=== PATIENT | female | born 1955 | race Caucasian/White ===

== ENCOUNTER → 2016-11-05 | Outpatient (CLI) | payer MEDICARE, OTHER ==
--- NOTE | 2016-11-05 13:37 | MR ---
EXAMINATION TYPE: MR shoulder RT wo con DATE OF EXAM: 11/05/2016 1:16 PM COMPARISON: NONE HISTORY: Right shoulder pain TECHNIQUE: Multiplanar, multisequence imaging of the right shoulder is performed without contrast. FINDINGS: Rotator Cuff: There is no evidence of through thickness tear of the rotator cuff. There is bursal scu ffing along the musculotendinous junction of the supraspinatus tendon. Acromioclavicular Joint: Hypertrophic change of the AC joint is seen to a mild degree. Prominence of the acromium does result in some mass effect and impingement upon the supraspinatus muscle and tendon . Glenohumeral Joint: Joint space appears narrowed. Cystic changes involving the glenoid noted with mar ked thinning of the glenoid cartilage compatible with chondromalacia. Small joint effusion seen with intermediate areas of signal within the axillary recess likely represent of loose bodies. Favor carti laginous etiology over avulsed labrum. Mild thickening of the inferior glenohumeral ligament likely c hronic with no evidence of tear. Labrum: Findings are suggestive of a SLAP tear. There is also blunting and abnormal morphology of the inferior labrum suspicious for degenerative tear. Biceps Tendon: The long head of biceps is in normal location within bicipital groove. There is increa sed signal involving the intracapsular portion of the tendon compatible with tendinosis. Bone marrow signal: Cystic change involving the head of the humerus and also noted within the glenoid appears post arthritic or degenerative. IMPRESSION: 1. Osteoarthritis with marked cartilaginous loss of the glenoid and suspected loose bodies within a s mall glenohumeral joint effusion. 2. Extensive labral tear likely degenerative. 3. Bicipital tendinosis intracapsular portion. 4. Bursal scuffing along the musculotendinous junction of the supraspinatus tendon likely secondary t o impingement from AC joint.
== END | disposition home or self-care (01) ==
LOC: RADMRIMAIN 12:39
PROVIDERS: ATTEND Orthopaedic Surgery
DX: M19.011 Primary osteoarthritis, right shoulder (principal); S43.431A Superior glenoid labrum lesion of right shoulder, initial encounter; M67.813 Other specified disorders of tendon, right shoulder

== ENCOUNTER → 2016-12-19 | Outpatient (CLI) | payer MEDICARE, OTHER ==
[2016-12-19 16:06] LABS: Anisocytosis Slight; Basophils % (A) 1 %; CH 22.6; CHCM 30.4; Eosinophils # (A) 0.3 k/uL (0-0.7); Eosinophils % (A) 5 %; HCT 39.9 % (34.0-46.0); HDW 2.82; HGB 12.7 gm/dL (11.4-16.0); Hypochromasia Marked; Luc # (Auto) 0.18; Luc % (Auto) 3; Lymphocytes # (A) 1.3 k/uL (1.0-4.8); Lymphocytes % (A) 20 %; MCH 23.9 pg (25.0-35.0); MCV 74.8 fL (80.0-100.0); Mean Platelet Volume 7.7; Microcytosis Slight; Monocytes # (A) 0.5 k/uL (0-1.0); Monocytes % (A) 7 %; Neutrophils # (A) 4.4 k/uL (1.3-7.7); Neutrophils % (A) 65 %; RBC 5.33 m/uL (3.80-5.40); RDW 16.3 % (11.5-15.5); WBC 6.7 k/uL (3.8-10.6); WBC (Perox) 7.17
[2016-12-19 16:13] LABS: Potassium 4.1 mmol/L (3.5-5.1)
== END | disposition home or self-care (01) ==
LOC: LABPAT 15:45
PROVIDERS: ATTEND Orthopaedic Surgery
DX: Z01.812 Encounter for preprocedural laboratory examination (principal)
CPT/HCPCS: 36415; 80051; 85025

== ENCOUNTER 2017-01-09 08:32 | Day surgery (SDC) | payer MEDICARE, OTHER ==
[2017-01-07 15:31] VITALS: BMI 44.6
--- NOTE | 2017-01-08 18:34 | HP ---
DATE OF ADMISSION: 01/09/2017 Irais Sheppard is a 61-year-old patient seen with progressive right shoulder pain. After having treatment options discussed, she elected to proceed with right shoulder arthroscopy. Consent was obtained. Medical clearance was provided by Dr. Jennings's office. PAST MEDICAL HISTORY: 1. Hypothyroidism. 2. Hypertension. 3. Hyperlipidemia. 4. Akj-dxvebmp-uvcmnnebi diabetes. 5. Asthma. 6. Osteoarthritis. 7. COPD. 8. Migraine headaches. PAST SURGICAL HISTORY: 1. Carpal tunnel release. 2. Cholecystectomy. 3. Hysterectomy. 4. Tonsillectomy. 5. Total knee arthroplasty. DAILY MEDICATIONS: 1. Albuterol. 2. Thyroid. 3. Ativan. 4. Cymbalta. 5. Imitrex. 6. Lipitor. 7. Metformin. 8. Seroquel. 9. Spiriva. 10. Synthroid. ALLERGIES: 1. CODEINE. 2. CELEXA. 3. VICODIN. 4. MEDICAL TAPE. SOCIAL HISTORY: Patient denies current tobacco use. PHYSICAL EVALUATION OF RIGHT SHOULDER: Flexion 110 degrees, abduction 90 degrees. External rotation is 30 degrees with pain and weakness. Tenderness along the anterolateral acromion and rotator cuff insertion site. Impingement positive at 90 degrees. Distal neurovascular exam intact. Radiographs of the right shoulder revealed type II anterior acromion, acromioclavicular joint osteoarthritis. MRI right shoulder revealed glenohumeral osteoarthritis, labral tear, biceps tendinitis and impingement. IMPRESSION: Right shoulder impingement with labral tear and biceps tendinitis. PLAN: Right shoulder arthroscopy with subacromial decompression, probable biceps tendon release and debridement.
[~2017-01-09 08:32] MED LIST: DEXAMETHASONE SOD PHOSPHATE 10 MG/ML 1 ML VIAL IV ONE; FAMOTIDINE 20 MG/2 ML VIAL IV PRN; HYDROmorphone 1 MG/ML 1 ML SYRINGE IVP PRN; LACTATED RINGERS 1,000 ML IV SCH; LIDOCAINE 1% 20 ML VIAL (10MG/ML) FOR IV START INTRADERMA PRN; MIDAZOLAM 2 MG/2 ML VIAL IV PRN; ONDANSETRON 4 MG/2 ML VIAL IVP ONE; ceFAZolin 2 GM in SODIUM CHLORIDE 0.9% 100 ML IVPB ONE
[2017-01-09 09:19] LABS: Glucose,Whole Blood 95 mg/dL (75-99)
[2017-01-09] MEDS ORDERED: LIDOCAINE 1% 20 ML VIAL (10MG/ML) FOR IV START INTRADERMA ONE (09:31)
[2017-01-09] MEDS ORDERED: LIDOCAINE 2%-EPI 1:100,000 20 ML VIAL ONE (10:25)
[2017-01-09] MEDS ORDERED: ROPIVACAINE 5 MG/ML 30 ML VIAL ONE (10:25)
[2017-01-09] MEDS ORDERED: NEOSTIGMINE 1 MG/ML 10 ML VIAL ONE (10:25)
[2017-01-09] MEDS ORDERED: SUCCINYLCHOLINE CHLORIDE 100 MG/5 ML SYR IV ONE (10:25)
[2017-01-09] MEDS ORDERED: PROPOFOL 10 MG/ML 20 ML VIAL IV ONE (10:25)
[2017-01-09] MEDS ORDERED: LIDOCAINE 1% INJ 10MG/ML (20 ML MDV) ONE (10:25)
[2017-01-09] MEDS ORDERED: GLYCOPYRROLATE 0.2 MG/ML 2 ML VIAL ONE (10:25)
[2017-01-09] MEDS ORDERED: ROCURONIUM BROMIDE 10 MG/ML 10 ML VIAL IV ONE (10:25)
[2017-01-09] MEDS ORDERED: fentaNYL (PF) 50 MCG/ML 2 ML AMP ONE (10:25)
[2017-01-09] MEDS ORDERED: MIDAZOLAM 2 MG/2 ML VIAL ONE (10:25)
[2017-01-09] MEDS ORDERED: LACTATED RINGERS 1,000 ML IV ONE (11:34)
[2017-01-09] MEDS ORDERED: BUPIVACAINE (PF) 0.25% 30 ML VIAL SQ ONE (11:34)
--- NOTE | 2017-01-09 12:08 | P.OP ---
Date of Procedure: 01/09/17 Preoperative Diagnosis: Right shoulder impingement Postoperative Diagnosis: 1. Right shoulder impingement 2. Right shoulder acromioclavicular joint osteoarthritis 3. Right shoulder grade 2/3 chondromalacia humeral head with osteochondral tears 4. Right shoulder grade 3/4 chondromalacia glenoid with osteochondral tears 5. Right shoulder anterior/superior labral tears 6. Right shoulder partial long head biceps tendon tear 7. Right shoulder superficial rotator cuff tear 8. Right shoulder loose bodies-2 Procedure(s) Performed: 1. Right shoulder arthroscopic subacromial decompression 2. Right shoulder arthroscopic Rachel procedure 3. Right shoulder arthroscopic chondroplasty humeral head 4. Shoulder arthroscopic chondroplasty glenoid fossa 5. Right shoulder arthroscopic debridement labral tears 6. Right shoulder arthroscopic biceps tenotomy 7. Right shoulder scopic debridement superficial rotator cuff tear 8. Right shoulder arthroscopic removal 2 loose bodies Implants: None Anesthesia: RANDI, local Surgeon: Jairon Herring Estimated Blood Loss (ml): 10 Pathology: none sent Condition: stable Disposition: PACU Indications for Procedure: 61-year-old patient seen with progressive right shoulder pain. After treatment options were discussed, she elected to proceed with arthroscopy. Operative Findings: See description of procedure Description of Procedure: Patient underwent a shoulder block by department of anesthesia. The patient was then taken to the operative suite. The patient underwent a general anesthetic by the department of anesthesia. The patient was placed into a lateral position and secured. There was appropriate padding of the bony prominence. Right shoulder was then prepped and draped in normal sterile orthopedic fashion. We placed the extremity in 10 pounds of longitudinal traction. A posterior incision was now made for a posterior working portal site. The trocar and cannula were inserted into the glenohumeral joint. Arthroscopy was initiated. Spinal needle was now inserted anteriorly, to ascertain the anterior working portal site. An incision was now made in that area, a trocar was inserted followed by a probe. I immediately encountered a large loose body. I removed the probe. I utilized a loose body forceps but no loose body was too big to try to remove. I then broke the loose body up into several fragments and remove them one by one. The probe was reintroduced. I discovered another loose body. I reintroduced loose body forceps and was able to remove it without difficulty. There was a osteochondral tearing defect along the anterior glenoid at about the 3 o'clock position. There was also some superficial tearing of the labrum in that area as well as superficial tearing of the superior labrum. There were grade 3 and 4 chondromalacia changes along the anterior portion of the glenoid. There were grade 2 and 3 chondral malacia changes of the humeral head with osteochondral tears present. The inferior posterior labrum were intact. There was some hyperemia noted of the long head biceps tendon was some partial tearing. I performed a chondroplasty of the humeral head getting down to stable osteochondral tissue. I performed a chondroplasty of the glenoid fossa getting down to stable osteochondral tissue. I debrided the labral tears down to stable tissue. I performed a arthroscopic biceps tenotomy. The residual labrum was probed and found to be stable. The residual osteochondral surfaces of both the humeral head and glenoid fossa were also stable. There were grade 3 chondromalacia changes of the humeral head and grade 3 and 4 chondromalacia changes of glenoid. Instruments at this point were removed from glenohumeral joint. Utilizing the posterior working portal site, the trocar and cannula were inserted into the subacromial space. Arthroscopy initiated. I made an incision 2 fingerbreadths lateral to the acromion. I introduced my trocar followed by my ArthroCare ablator. I now began ablating thick subacromial bursal tissue, which exposed the undersurface of the anterior acromion. This was diminished subacromial space. There was a very prominent anterior acromion. A motorized bur was introduced and a subacromial decompression was performed. I also excised some osteophytes off the inferior aspect of the distal clavicle. The AC joint was visualized and noted to be fairly arthritic. Our motorized bur was introduced in the anterior portal site and a Rachel procedure was performed without difficulty, decompressing the AC joint nicely. I turned my attention to the rotator cuff. There was some superficial tearing of the distal supraspinatus. I did not appreciate an obvious perforation or full-thickness tear. Motorize shaver was utilized to debride the tendon down to stable tissue. The residual rotator cuff tendon tissue was stable. I now injected 1 mL of Allogen intra-articular. Instruments now removed from the portal sites. All portal sites were approximated with nylon suture. Sterile dressings were applied followed by a shoulder immobilizer. The patient was awakened, transferred to a bed, and taken to recovery in stable condition.
[2017-01-09 12:26] VITALS: TEMP 96.9
[2017-01-09 12:32] LABS: Glucose,Whole Blood 120 mg/dL (75-99)
[2017-01-09 14:21] VITALS: BP 99/61; PULSE 93; RESP 20
== END 2017-01-09 15:01 | disposition home or self-care (01) ==
LOC: OR 08:32
PROVIDERS: ATTEND Orthopaedic Surgery
DX: M75.41 Impingement syndrome of right shoulder (principal); M19.011 Primary osteoarthritis, right shoulder; M94.211 Chondromalacia, right shoulder; M75.101 Unspecified rotator cuff tear or rupture of right shoulder, not specified as traumatic; M25.711 Osteophyte, right shoulder; M24.011 Loose body in right shoulder; E03.9 Hypothyroidism, unspecified; I10 Essential (primary) hypertension; E78.5 Hyperlipidemia, unspecified; K21.9 Gastro-esophageal reflux disease without esophagitis; E11.9 Type 2 diabetes mellitus without complications; Z79.84 Long term (current) use of oral hypoglycemic drugs; F32.9 Major depressive disorder, single episode, unspecified; F41.9 Anxiety disorder, unspecified; J44.9 Chronic obstructive pulmonary disease, unspecified; G43.909 Migraine, unspecified, not intractable, without status migrainosus; Z79.899 Other long term (current) drug therapy; Z88.5 Allergy status to narcotic agent; Z88.8 Allergy status to other drugs, medicaments and biological substances; Z91.09 Other allergy status, other than to drugs and biological substances
CPT/HCPCS: 64415; 29826; 29827; 29824; C1765; J2250; J1100; J2710; J0690; J2405; J2001; J3010; J2795; J0330; J2704

== ENCOUNTER → 2017-10-31 | Outpatient (CLI) | payer MEDICARE, OTHER | END | disposition home or self-care (01) | LOC: LABWHC1 15:30 → LABPAT 15:30 | PROVIDERS: ATTEND Orthopaedic Surgery | DX: Z01.812 Encounter for preprocedural laboratory examination (principal) | CPT/HCPCS: 87070 ==

== ENCOUNTER 2017-11-11 08:14 | Inpatient (IN) | payer MEDICARE, OTHER ==
[2017-10-31 15:39] VITALS: BMI 45.3
--- NOTE | 2017-11-10 14:21 | HP ---
HISTORY AND PHYSICAL Surgery is scheduled for 11/11/2017. Irais Sheppard is a 62-year-old patient seen with symptomatic right knee osteoarthritis. After treatment options were discussed, she elected to proceed with right total knee arthroplasty. Consent was obtained. Medical clearance was provided by Dr. Luisa Jennings. PAST MEDICAL HISTORY: Hypothyroidism, asthma, hyperlipidemia, hypertension, krx-iacfaju-abzycuuuy diabetes. PAST SURGICAL HISTORY: Carpal tunnel release, cholecystectomy, hysterectomy, tonsillectomy, knee arthroscopy, left total knee arthroplasty. DAILY MEDICATIONS: Albuterol, Aricept, Synthroid, Ventolin, Seroquel, Spiriva, metformin, Lipitor, Imitrex. ALLERGIES: CODEINE, CELEXA, VICODIN, TAPE. SOCIAL HISTORY: Patient denies current tobacco use. PHYSICAL EXAMINATION: Evaluation right knee: Range of motion is -2 to 115. Tenderness medial joint line. Positive medial Roger's, crepitus medial patellofemoral compartments. Pain with patellofemoral compression. Ligaments stable. Hip rotation without pain. Distal neurovascular exam intact right knee. RADIOGRAPHS: Right knee radiographs revealed severe medial moderate patellofemoral compartment osteoarthritis. IMPRESSION: Right knee osteoarthritis, hypertension, hyperlipidemia, hypothyroidism, non-insulin- dependent diabetes. PLAN: Right total knee arthroplasty. MMODL / IJN: [id number] /
[~2017-11-11 08:14] MED LIST changes: +ACETAMINOPHEN TAB 500 MG TAB PO ONE; -DEXAMETHASONE SOD PHOSPHATE 10 MG/ML 1 ML VIAL IV ONE; -FAMOTIDINE 20 MG/2 ML VIAL IV PRN; -HYDROmorphone 1 MG/ML 1 ML SYRINGE IVP PRN; +MELOXICAM 7.5 MG TAB PO ONE; -MIDAZOLAM 2 MG/2 ML VIAL IV PRN; +TRANEXAMIC ACID 1,000 MG in SODIUM CHLORIDE 0.9% 50 ML IVPB ONE; -ceFAZolin 2 GM in SODIUM CHLORIDE 0.9% 100 ML IVPB ONE; +fentaNYL (PF) 50 MCG/ML 2 ML AMP IV PRN
[2017-11-11] MEDS ORDERED: LIDOCAINE 1% 20 ML VIAL (10MG/ML) FOR IV START INTRADERMA ONE (09:16)
[2017-11-11 09:22] LABS: Glucose,Whole Blood 132 mg/dL (75-99)
[2017-11-11] MEDS ORDERED: ROPIVACAINE 246.25 MG, EPINEPHrine 0.5 MG, KETOROLAC 30 MG, cloNIDine HCL/PF 80 MCG, WA... MISCELLANE ONE ×5 (09:22)
[2017-11-11] MEDS ORDERED: MIDAZOLAM 2 MG/2 ML VIAL IV ONE (09:36)
[2017-11-11] MEDS ORDERED: ONDANSETRON 4 MG/2 ML VIAL IVP ONE (09:40)
[2017-11-11] MEDS ORDERED: ceFAZolin 3,000 MG in SODIUM CHLORIDE 0.9% IRRIGATIO 3,000 ML IRRIGATION ONE (10:00)
[2017-11-11] MEDS: ceFAZolin IN SWFI 2 GM/20 ML SYRINGE IVP ONE ×2 (10:00→10:31)
[2017-11-11] MEDS ORDERED: TRANEXAMIC ACID 1,000 MG/10 ML VIAL ONE (10:00)
[2017-11-11] MEDS ORDERED: MIDAZOLAM 2 MG/2 ML VIAL ONE (10:00)
[2017-11-11] MEDS ORDERED: PROPOFOL 10 MG/ML 20 ML VIAL IV ONE (10:00)
[2017-11-11] MEDS ORDERED: SODIUM CHLORIDE 0.9% 100 ML BAG ONE (10:00)
[2017-11-11] MEDS ORDERED: LACTATED RINGERS 1,000 ML IV ONE (10:55)
[2017-11-11] MEDS ORDERED: ROPIVACAINE 1,100 MG, SODIUM CHLORIDE 0.9% 330 ML MISCELLANE PRN ×2 (11:21)
[2017-11-11] MEDS ORDERED: DEXAMETHASONE SOD PHOSPHATE 10 MG/ML 1 ML VIAL IV ONE (11:31)
[2017-11-11] MEDS ORDERED: HYDROcodone/APAP 7.5-325MG 1 EACH TAB PO PRN (11:36)
[2017-11-11] MEDS ORDERED: ONDANSETRON 4 MG/2 ML VIAL IVP PRN (11:36)
[2017-11-11] MEDS ORDERED: MORPHINE SULFATE 4 MG/ML SYRINGE IVP PRN ×2 (11:36)
[2017-11-11] MEDS ORDERED: NALOXONE 0.4 MG/ML 1 ML VIAL IV PRN (11:36)
--- NOTE | 2017-11-11 11:36 | P.OP ---
Date of Procedure: 11/11/17 Preoperative Diagnosis: Right knee osteoarthritis Postoperative Diagnosis: Right knee osteoarthritis Procedure(s) Performed: Right total knee arthroplasty Implants: 1. Cam persona size 6 narrow right cruciate retaining cemented femur 2. Cam persona size D right cemented tibia 3. Cam persona 10 mm medial congruent polyethylene tibial insert 4. Cam persona 32 mm all polyethylene cemented patella Anesthesia: regional (Adductor canal block), local, spinal Surgeon: Jairon Herring Carpentry Professional #1: Chuck Joseph Estimated Blood Loss (ml): 40 Pathology: other (Bone) Condition: stable Disposition: PACU Indications for Procedure: 62-year-old patient seen was symptomatically right knee osteoarthritis. After treatment options were discussed, she elected to proceed with total knee arthroplasty. Operative Findings: see description of procedure Description of Procedure: Patient was taken to the operative suite after having and adductor canal catheter placed by the department of anesthesia. Patient underwent a spinal anesthetic by the department of anesthesia. Patient was given preoperative IV intake antibiotics and TXA. A well-padded tourniquet was placed about the right lower extremity. The lower extremity was then prepped and draped in the normal sterile orthopedic fashion. The extremity was elevated, a tourniquet was insufflated to 300. A standard anterior incision was made sharply through skin. Dissection was taken down through the subcutaneous soft tissues down to the extensor mechanism. A medial arthrotomy was performed, patella was everted and knee was flexed. There was advanced osteoarthritis noted. A proximal tibial cutting guide was positioned. Proximal tibial cut was made. A distal intramedullary femoral cutting guide was positioned, distal femoral cut made. We placed the appropriate sizing guide and selected the appropriate size. A distal 4-in-1 femoral cutting block was positioned, distal femoral cuts were made. We now placed a trial femoral component into position, along with an appropriate size tibial tray and insert. We now took the knee through range of motion and had full extension good flexion and good overall soft tissue balance noted. The patella was everted and a flush cut made with patellar quad tendon. We templated the patella, appropriate drill holes were made. An appropriate trial patella was positioned, knee was taken through full range of motion with the patella tracking very nicely. The trial patella was removed. Drill holes were made through the femoral component. All trial components were removed after marking off the appropriate rotation of the tibia. Retractors were now positioned along the proximal tibia. An appropriate keel punch was made with the appropriate size tibial guide. At this point appropriate size implants were chosen and opened. The joint was irrigated copiously with pulse lavage mechanical irrigation. The posterior capsule was infiltrated with local analgesic. We mixed antibiotic methylmethacrylate. Once the methyl methacrylate was ready, the tibial component was cemented into place removing any excess methylmethacrylate. The femoral component was cemented into place removing the removing any excess methylmethacrylate. We then inserted the appropriate size polyethylene tibial insert. We made sure that it was locked into position. We took the knee into full extension, and then back in a flexion making sure we had removed any excess methylmethacrylate. The patellar component was then cemented down and secured with clamp. Excess methylmethacrylate removed. We kept the knee in full extension, patellar clamp in position until methylmethacrylate had hardened. Once it had hardened the patellar clamp was removed. The knee was taken through full range of motion. The patella tracked nicely. There was good soft tissue balancing. The tourniquet was now released. Additional hemostasis was achieved via electrocautery. A second gram of TXA was given. The superficial soft tissues were infiltrated local analgesic. The wound was irrigated with pulse lavage mechanical irrigation. The extensor mechanism was repaired with Vicryl. We checked the repair with range of motion and it was stable. The subcutaneous soft tissues were repaired with Vicryl in layers. The skin was approximated with skin frederick. Sterile dressings were applied followed by loose web roll and Melvin bandage. The patient was transferred to a bed, and taken to recovery in stable and satisfactory condition. David LAZO assisted with the procedure.
--- NOTE | 2017-11-11 12:44 | XR ---
EXAMINATION TYPE: XR knee limited RT DATE OF EXAM: 11/11/2017 CLINICAL HISTORY: Right knee pain and arthritis status post total knee replacement. TECHNIQUE: Portable AP and crosstable lateral views of the right knee are obtained immediately posto peratively. COMPARISON: None FINDINGS: Metallic hardware from total right knee arthroplasty is seen and appears satisfactory in a lignment and position. There is evidence of recent surgery with diffuse subcutaneous gas, soft tissu e swelling and vertical skin frederick noted. IMPRESSION: METALLIC HARDWARE FROM TOTAL RIGHT KNEE ARTHROPLASTY IS SATISFACTORY IN ALIGNMENT.
[2017-11-11 13:03] LABS: Glucose,Whole Blood 172 mg/dL (75-99)
[2017-11-11] MEDS ORDERED: BISMUTH SUBSALICYLATE 4,192 MG/240 ML BOTTLE PO PRN (14:05)
[2017-11-11] MEDS ORDERED: NITROGLYCERIN SL TABS 0.4 MG TAB SUBLINGUAL PRN (14:05)
[2017-11-11] MEDS ORDERED: ALBUTEROL NEBULIZED 2.5 MG/3 ML INHALATION PRN (14:05)
[2017-11-11] MEDS ORDERED: QUEtiapine 25 MG TAB PO SCH (14:15)
[2017-11-11] MEDS: traMADol 50 MG TAB PO SCH ×2 (14:37→17:55)
[2017-11-11] MEDS: QUEtiapine 50 MG TAB PO SCH ×3 (14:42→22:55)
[2017-11-11] MEDS: GABAPENTIN 400 MG CAP PO SCH ×3 (14:42→20:36)
[2017-11-11] MEDS: LACTATED RINGERS 1,000 ML IV SCH (14:44)
[2017-11-11] MEDS: ADDERALL 30MG PO SCH (14:45)
--- NOTE | 2017-11-11 15:32 | P.CONS ---
History of Present Illness - Reason for Consult Consult date: 11/11/17 Medical management Requesting physician: Jairon Herring - Chief Complaint Status post right total knee arthroplasty - History of Present Illness This is a 62-year-old female, a patient of Dr. Jennings. She has a known past medical history of osteoarthritis, hypothyroidism, hyperlipidemia, diabetes mellitus, obstructive sleep apnea, dementia, ADHD, bipolar, schizophrenia, anxiety and depression. Patient is status post a total knee arthroplasty. Postop day #0. Estimated blood loss 40 amount. No complications reported. She is artery sitting up at bedside chair. Pain is tolerable. She is reporting some numbness in the right heel. We have been consulted for medical management. She denies any fever, chills, sweats, nausea or vomiting, bowel movement changes or urinary symptoms. Review of Systems Please refer to HPI otherwise unremarkable Past Medical History Past Medical History: Chest Pain / Angina, COPD, Diabetes Mellitus, GERD/Reflux , Hyperlipidemia, Memory Impairment, Osteoarthritis (OA), Sleep Apnea/CPAP/BIPAP , Thyroid Disorder Additional Past Medical History / Comment(s): Hx migraine headaches, colitis, 4 bulging discs in back, ruptured disks in lower back, use of CPAP, short term memory loss, emphysema, colitis. History of Any Multi-Drug Resistant Organisms: MRSA Year Discovered:: 05/09/10 MDRO Source:: rt knee Past Surgical History: Appendectomy, Cholecystectomy, Hysterectomy, Joint Replacement, Orthopedic Surgery, Tonsillectomy Additional Past Surgical History / Comment(s): Bilateral carpal tunnel, TOTAL LEFT KNEE. Past Anesthesia/Blood Transfusion Reactions: No Reported Reaction Past Psychological History: Anxiety, Bipolar, Depression, Panic Disorder, Schizoaffective Disorder Additional Psychological History / Comment(s): psychosis, borderline personality disorder, Smoking Status: Former smoker Past Alcohol Use History: None Reported Additional Past Alcohol Use History / Comment(s): Quit smoking in 1994, smoked for 30 yrs-1-2 PPD. Past Drug Use History: None Reported - Past Family History Mother Family Medical History: No Reported History Medications and Allergies Home Medications Medication Instructions Recorded Confirmed Type Albuterol Inhaler [Ventolin Hfa 2 puff INHALATION RT-Q6H PRN 10/17/15 11/11/17 History Inhaler] DULoxetine HCL [Cymbalta] 120 mg PO QAM 10/17/15 11/11/17 History Donepezil HCl [Aricept] 10 mg PO HS 10/17/15 11/11/17 History Gabapentin [Neurontin] 400 mg PO QID 10/17/15 11/11/17 History Ibandronate Sodium [Boniva] 150 mg PO Q30D 10/17/15 11/11/17 History Loratadine [Claritin] 10 mg PO HS 10/17/15 11/11/17 History Nitroglycerin Sl Tabs [Nitrostat] 0.4 mg SUBLINGUAL Q5M PRN 10/17/15 11/11/17 History Pantoprazole Sodium 40 mg PO QAM 10/17/15 11/11/17 History QUEtiapine XR [SEROquel XR] 150 mg PO W/LUNCH 10/17/15 11/11/17 History Sucralfate [Carafate] 1 gm PO BID 10/17/15 11/11/17 History metFORMIN HCL [Glucophage] 850 mg PO TID 10/17/15 11/11/17 History Albuterol Nebulized [Ventolin 2.5 mg INHALATION RT-TID PRN 10/31/15 11/11/17 History Nebulized] Atorvastatin [Lipitor] 40 mg PO HS 01/07/17 11/11/17 History Ergocalciferol (Vitamin D2) 50,000 unit PO BLEDSOE 01/07/17 11/11/17 History [Vitamin D2] Levothyroxine Sodium [Synthroid] 75 mcg PO HS 01/07/17 11/11/17 History QUEtiapine XR [SEROquel XR] 150 mg PO HS 01/07/17 11/11/17 History QUEtiapine XR [SEROquel XR] 150 mg PO W/SUPPER 01/07/17 11/11/17 History Bismuth Subsalicylate 262 mg PO BID PRN 10/31/17 11/11/17 History [Pepto-Bismol] Dextroamphetamine/Amphetamine 30 mg PO DAILY 10/31/17 11/11/17 History [Adderall] Ferrous Sulfate [Iron (65 MG 325 mg PO DAILY 10/31/17 11/11/17 History Elemental)] HYDROcodone/APAP 5-325MG [[place] 1 tab PO Q6H PRN 10/31/17 11/11/17 History 5-325] Ibuprofen 800 mg PO TID PRN 10/31/17 11/11/17 History SUMAtriptan SUCCINATE [Imitrex] 100 mg PO TID PRN 10/31/17 11/11/17 History cloNIDine HCL [Catapres] 0.2 mg PO HS 10/31/17 11/11/17 History lamoTRIgine [LaMICtal] 25 mg PO HS 10/31/17 11/11/17 History Allergies Allergy/AdvReac Type Severity Reaction Status Date / Time adhesive tape Allergy Blisters Verified 11/11/17 13:09 citalopram hydrobromide Allergy Itching,jenna Verified 11/11/17 13:09 [From Celexa] h codeine Allergy Nausea & Verified 11/11/17 13:09 Vomiting hydrocodone bitartrate Allergy Nausea & Verified 11/11/17 13:09 [From Vicodin] Vomiting pentazocine HCl Allergy "loss of Verified 11/11/17 13:09 [From [place]] time/memory" surgical glue AdvReac Unknown Uncoded 11/11/17 08:50 Physical Exam Vitals: Vital Signs Temp Pulse Resp BP Pulse Ox 11/11/17 15:15 80 16 122/56 11/11/17 15:00 82 16 114/57 11/11/17 14:45 73 16 108/55 11/11/17 14:30 76 16 109/58 11/11/17 14:15 77 16 106/58 11/11/17 14:00 74 16 109/57 11/11/17 13:45 81 16 111/59 11/11/17 13:30 97.8 F 84 16 119/58 94 L 11/11/17 12:48 85 16 120/60 94 L 11/11/17 12:33 83 16 121/57 94 L 11/11/17 12:18 80 16 119/57 99 11/11/17 12:03 82 16 119/57 100 11/11/17 11:48 97.8 F 88 16 96/53 98 11/11/17 09:17 105/69 11/11/17 08:30 98.5 F 88 16 91/58 95 Intake and Output 11/11/17 11/11/17 11/11/17 06:59 14:59 22:59 Intake Total 1501 Output Total 40 Balance 1461 Intake: IV 1501 Output: Estimated Blood Loss 40 Other: # Voids 0 Weight 116.12 kg Patient Weight 11/12/17 06:59 Weight 116.12 kg Head normocephalic Neck supple Lungs clear to auscultation bilaterally no wheezing or crackles Heart regular rate and rhythm S1-S2, no rub or gallop Abdomen is soft nontender nondistended positive bowel sounds no hepatosplenomegaly Extremities no edema. Right knee is Melvin wrapped. Patient is able to wiggle her toes. She has decreased sensation in the right heel Neuro alert and orientated to 3 Results Labs: Abnormal Lab Results - Last 24 Hours (Table) 11/11/17 11/11/17 Range/Units 09:05 13:00 POC Glucose (mg/dL) 132 H 172 H (75-99) mg/dL Assessment and Plan Assessment: 1. Osteoarthritis of the right knee: Status post right total knee arthroplasty. Postop day #0. Continue pain medications per orthopedic protocol. Continue Lovenox for DVT prophylaxis 2. Obstructive sleep apnea she will bring CPAP from home 3. History of bipolar and schizophrenia: Resume psychiatric meds 4. Diabetes mellitus type 2: Resume metformin. Add sliding scale coverage. Check A1c 5. Hyperlipidemia continue Lipitor 6. ADHD okay for patient to bring Adderall from home 7. COPD history continue the albuterol as needed. Stable and no evidence of exacerbation. Former smoker quit several years ago 8. Hypothyroidism continue Synthroid GI prophylaxis Pepcid and DVT prophylaxis Lovenox Thank you for this consultation. We will continue to follow along with you during patient's hospitalization. Check CBC and CMP in a.m. Time with Patient: Greater than 30 (Greater than 50% of the total time spent in counseling and coordination of care.I performed an examination of the patient and discussed their management with the physician Marine Engineer Cpvec. I have reviewed the Physician Marine Engineer Cpvec's notes and agree with the documented findings and plan of care)
[2017-11-11] MEDS: ceFAZolin IN SWFI 2 GM/20 ML SYRINGE IVP SCH (16:17)
[2017-11-11] MEDS ORDERED: SUMAtriptan SUCCINATE 50 MG TAB PO PRN (17:02)
[2017-11-11] MEDS: SUCRALFATE 1 GM TAB PO SCH (17:04)
[2017-11-11] MEDS: metFORMIN 850 MG TAB PO SCH (17:04)
[2017-11-11] MEDS: HYDROcodone/APAP 7.5-325MG 1 EACH TAB PO PRN ×2 (17:04→22:54)
[2017-11-11 17:34] LABS: Glucose,Whole Blood 178 mg/dL (75-99)
[2017-11-11] MEDS: INSULIN ASPART 100 UNIT/ML 1 ML 10 ML VIAL SQ SCH ×2 (17:55→20:42)
[2017-11-11 20:16] LABS: Glucose,Whole Blood 143 mg/dL (75-99)
[2017-11-11] MEDS: ATORVASTATIN 40 MG TAB PO SCH (20:35)
[2017-11-11] MEDS: lamoTRIgine 25 MG TAB PO SCH (20:36)
[2017-11-11] MEDS: DONEPEZIL 10 MG TAB PO SCH (20:36)
[2017-11-11] MEDS: LEVOTHYROXINE 75 MCG TAB PO SCH (20:36)
[2017-11-11] MEDS: LORATADINE 10 MG TAB PO SCH (20:36)
[2017-11-11] MEDS: cloNIDine HCL 0.2 MG TAB PO SCH (20:39)
[2017-11-11] MEDS: hydrOXYzine PAMOATE 25 MG CAP PO PRN (22:54)
[2017-11-11] MEDS: SENNOSIDES-DOCUSATE SODIUM 1 EACH TAB PO SCH (22:55)
[2017-11-12] MEDS: ceFAZolin IN SWFI 2 GM/20 ML SYRINGE IVP SCH (00:24)
[2017-11-12] MEDS: traMADol 50 MG TAB PO SCH ×5 (00:24→21:55)
[2017-11-12] MEDS: hydrOXYzine PAMOATE 25 MG CAP PO PRN ×3 (04:10→16:54)
[2017-11-12] MEDS: HYDROcodone/APAP 7.5-325MG 1 EACH TAB PO PRN (04:10)
[2017-11-12] MEDS: LACTATED RINGERS 1,000 ML IV SCH ×3 (04:13→19:52)
--- NOTE | 2017-11-12 05:57 | P.ONQ ---
Anesthesiology Proc Note - PNB - Peripheral Nerve Block Performed Right Adductor Canal Infusion Time Out Performed: Yes Procedure Start Time: :46 Procedure Stop Time: :54 Indication: Acute Post-Operative Pain, Requested by physician Sedation Type: Sedate with meaningful contact maintained Preparation: Sterile Dressing Position: Supine Catheter: Indwelling Needle Types: On-Q Needle Size: 100mm (4") Needle Gauge: 21 Technique: Ultrasound Injectate: 0.5% Ropivacaine (see comment for volume) (ropi .5% 20cc) Blood Aspirated: No Pain Paresthesia on Injection Noted: No Resistance on Injection: Normal Events: Uneventful and Well Tolerated
[2017-11-12 07:20] LABS: Basophils % (A) 0 %; Eosinophils # (A) 0.1 k/uL (0-0.7); Eosinophils % (A) 1 %; HCT 32.4 % (34.0-46.0); HGB 9.6 gm/dL (11.4-16.0); Hypochromasia Marked; Lymphocytes # (A) 1.5 k/uL (1.0-4.8); Lymphocytes % (A) 17 %; MCH 24.1 pg (25.0-35.0); MCHC 29.6 g/dL (31.0-37.0); MCV 81.6 fL (80.0-100.0); Mean Platelet Volume 6.6; Monocytes # (A) 0.6 k/uL (0-1.0); Monocytes % (A) 8 %; Neutrophils # (A) 6.2 k/uL (1.3-7.7); Neutrophils % (A) 73 %; Platelet Count 268 k/uL (150-450); RBC 3.96 m/uL (3.80-5.40); RDW 15.6 % (11.5-15.5); WBC 8.5 k/uL (3.8-10.6)
[2017-11-12 07:31] LABS: Glucose,Whole Blood 101 mg/dL (75-99)
[2017-11-12] MEDS: metFORMIN 850 MG TAB PO SCH ×3 (07:44→16:54)
[2017-11-12] MEDS: SUCRALFATE 1 GM TAB PO SCH ×2 (07:44→16:54)
[2017-11-12] MEDS: MORPHINE SULFATE 4 MG/ML SYRINGE IVP PRN ×3 (07:44→19:22)
[2017-11-12] MEDS: ENOXAPARIN 30 MG/0.3 ML SYRINGE SQ SCH ×2 (07:44→21:38)
[2017-11-12] MEDS: DULoxetine HCL 60 MG CAPSULE.DR PO SCH (07:44)
[2017-11-12] MEDS: PANTOPRAZOLE 40 MG TABLET PO SCH (07:44)
[2017-11-12] MEDS: GABAPENTIN 400 MG CAP PO SCH ×4 (07:44→21:55)
[2017-11-12] MEDS: INSULIN ASPART 100 UNIT/ML 1 ML 10 ML VIAL SQ SCH ×4 (07:45→21:29)
[2017-11-12 07:56] LABS: ALT 37 U/L (9-52); AST 27 U/L (14-36); Albumin 3.2 g/dL (3.5-5.0); Alkaline Phosphatase 89 U/L (38-126); Anion Gap 10 mmol/L; Blood Urea Nitrogen 20 mg/dL (7-17); Calcium 8.8 mg/dL (8.4-10.2); Carbon Dioxide 26 mmol/L (22-30); Chloride 106 mmol/L (98-107); Glucose 100 mg/dL (74-99); Potassium 4.2 mmol/L (3.5-5.1); Sodium 142 mmol/L (137-145); Total Bilirubin 0.1 mg/dL (0.2-1.3); Total Protein 5.5 g/dL (6.3-8.2)
[2017-11-12] MEDS: ADDERALL 30MG PO SCH (08:40)
[2017-11-12] MEDS ORDERED: FERROUS SULFATE 325 MG TAB PO SCH (09:00)
[2017-11-12] MEDS: FAMOTIDINE 20 MG TAB PO SCH (09:19)
[2017-11-12] MEDS: MELOXICAM 7.5 MG TAB PO SCH (09:19)
--- NOTE | 2017-11-12 10:03 | P.PN ---
Subjective Progress Note Date: 11/12/17 Principal diagnosis: s/p right tka Patient seen today resting in her hospital chair, she appears comfortable. She has noted some increasing pain to the night. She's ambulated well with therapy. She denies any headaches, lightheadedness, chest pain or shortness of breath. Objective - Vital Signs Vital signs: Vital Signs Temp 98.1 F 11/12/17 06:41 Pulse 66 11/12/17 06:41 Resp 14 11/12/17 06:41 BP 108/64 11/12/17 06:41 Pulse Ox 97 11/12/17 06:41 Intake & Output 11/11/17 11/12/17 11/12/17 18:59 06:59 18:59 Intake Total 1501 Output Total 40 Balance 1461 Weight 116.12 kg Intake: IV 1501 Output: Estimated Blood Loss 40 Other: # Voids 0 1 - Exam Right lower extremity: Incision is clean, dry, and intact. The frederick are in good condition. There is minimal soft tissue swelling and ecchymosis surrounding the medial and lateral aspects of the incision. Calf is soft, no tenderness with palpation. Plantar flexion, dorsiflexion, EHL, FHL are intact. Sensory exam to light touch throughout the extremity is intact, dorsal pedis pulses 2+. - Labs CBC & Chem 7: 11/12/17 06:37 11/12/17 06:37 Labs: Abnormal Lab Results - Last 24 Hours (Table) 11/11/17 11/11/17 11/11/17 Range/Units 13:00 16:58 20:03 Hgb (11.4-16.0) gm/dL Hct (34.0-46.0) % MCH (25.0-35.0) pg MCHC (31.0-37.0) g/dL RDW (11.5-15.5) % BUN (7-17) mg/dL Glucose (74-99) mg/dL POC Glucose (mg/dL) 172 H 178 H 143 H (75-99) mg/dL Total Bilirubin (0.2-1.3) mg/dL Total Protein (6.3-8.2) g/dL Albumin (3.5-5.0) g/dL 03/06/18 03/06/18 03/06/18 Range/Units 06:37 06:37 07:09 Hgb 9.6 L (11.4-16.0) gm/dL Hct 32.4 L (34.0-46.0) % MCH 24.1 L (25.0-35.0) pg MCHC 29.6 L (31.0-37.0) g/dL RDW 15.6 H (11.5-15.5) % BUN 20 H (7-17) mg/dL Glucose 100 H (74-99) mg/dL POC Glucose (mg/dL) 101 H (75-99) mg/dL Total Bilirubin 0.1 L (0.2-1.3) mg/dL Total Protein 5.5 L (6.3-8.2) g/dL Albumin 3.2 L (3.5-5.0) g/dL Assessment and Plan Plan: Assessment: 1. Postop day 1 status post right total knee arthroplasty Plan: 1. Pain control, will continue with current oral medication. We'll add Vistaril 25 mg by mouth every 6 hours 2. Continue work with physical therapy and use of CPM 3. Daily dressing changes/ice and elevate 4. Encourage incentive spirometer 5. GI and DVT prophylaxis, continue use of Lovenox during inpatient stay 6. Medical recommendations 7. Discharge planning: Patient will likely be discharged to rehab in the next 2 days Time with Patient: Less than 30
[2017-11-12] MEDS: HYDROcodone/APAP 10-325MG 1 EACH TAB PO PRN ×3 (10:40→23:15)
--- NOTE | 2017-11-12 11:10 | P.PN ---
Subjective Progress Note Date: 11/12/17 Status post right total knee arthroplasty postoperative day #1 Patient is complaining of right knee pain. Orthopedics have increased the [place] 10 mg every 6 hours and added Vistaril. Patient denies any chest pain or shortness of breath. Denies any nausea vomiting. She is passing gas no bowel movement yet. Denies any burning with urination. She has been up and ambulating. Objective - Vital Signs Vital signs: Vital Signs Temp 98.1 F 11/12/17 06:41 Pulse 66 11/12/17 06:41 Resp 14 11/12/17 06:41 BP 108/64 11/12/17 06:41 Pulse Ox 97 11/12/17 06:41 Intake & Output 11/11/17 11/12/17 11/12/17 18:59 06:59 18:59 Intake Total 1501 Output Total 40 Balance 1461 Weight 116.12 kg Intake: IV 1501 Output: Estimated Blood Loss 40 Other: # Voids 0 1 - Exam Head normocephalic Neck supple Lungs clear to auscultation bilaterally no wheezing or crackles Heart regular rate and rhythm S1-S2, no rub or gallop Abdomen is soft nontender nondistended positive bowel sounds no hepatosplenomegaly Extremities no edema Neuro alert and orientated to 3 - Labs CBC & Chem 7: 11/12/17 06:37 11/12/17 06:37 Labs: Abnormal Lab Results - Last 24 Hours (Table) 11/11/17 11/11/17 11/11/17 Range/Units 13:00 16:58 20:03 Hgb (11.4-16.0) gm/dL Hct (34.0-46.0) % MCH (25.0-35.0) pg MCHC (31.0-37.0) g/dL RDW (11.5-15.5) % BUN (7-17) mg/dL Glucose (74-99) mg/dL POC Glucose (mg/dL) 172 H 178 H 143 H (75-99) mg/dL Total Bilirubin (0.2-1.3) mg/dL Total Protein (6.3-8.2) g/dL Albumin (3.5-5.0) g/dL 11/12/17 11/12/17 11/12/17 Range/Units 06:37 06:37 07:09 Hgb 9.6 L (11.4-16.0) gm/dL Hct 32.4 L (34.0-46.0) % MCH 24.1 L (25.0-35.0) pg MCHC 29.6 L (31.0-37.0) g/dL RDW 15.6 H (11.5-15.5) % BUN 20 H (7-17) mg/dL Glucose 100 H (74-99) mg/dL POC Glucose (mg/dL) 101 H (75-99) mg/dL Total Bilirubin 0.1 L (0.2-1.3) mg/dL Total Protein 5.5 L (6.3-8.2) g/dL Albumin 3.2 L (3.5-5.0) g/dL Assessment and Plan Assessment: 1. Osteoarthritis of the right knee: Status post right total knee arthroplasty. Postop day #1. Continue pain medications per orthopedic protocol. Continue Lovenox for DVT prophylaxis 2. Obstructive sleep apnea she will bring CPAP from home 3. History of bipolar and schizophrenia: Resume psychiatric meds 4. Diabetes mellitus type 2: Resume metformin. Add sliding scale coverage. Check A1c 5. Hyperlipidemia continue Lipitor 6. ADHD okay for patient to bring Adderall from home 7. COPD history continue the albuterol as needed. Stable and no evidence of exacerbation. Former smoker quit several years ago 8. Hypothyroidism continue Synthroid 9. Acute blood loss anemia expected after surgery. Hemoglobin 9.6. Start ferrous sulfate 325 mg twice a day. Check CBC in a.m. GI prophylaxis Pepcid and DVT prophylaxis Lovenox Patient is planning to be discharged to ECF in 2 days I performed an examination of the patient and discussed their management with the physician Germination Worker. I have reviewed the Physician Germination Worker's notes and agree with the documented findings and plan of care
[2017-11-12 11:33] LABS: Glucose,Whole Blood 115 mg/dL (75-99)
[2017-11-12] MEDS: QUEtiapine 50 MG TAB PO SCH ×3 (12:09→21:36)
--- NOTE | 2017-11-12 13:11 | P.PN ---
Progress Note - Text Anesthesia POD 1. Patient is status post right TKR under spinal anesthesia with a right adductor canal catheter placed for postoperative pain relief. With ropivacaine 0.2% running at 12 cc's per hour, the patient's VAS is (3, 5). Catheter site is clean dry and intact.
[2017-11-12 16:42] LABS: Glucose,Whole Blood 91 mg/dL (75-99)
[2017-11-12 17:59] LABS: Hemoglobin A1C 6.3 % (4.0-6.0)
[2017-11-12 20:34] LABS: Glucose,Whole Blood 122 mg/dL (75-99)
[2017-11-12] MEDS: cloNIDine HCL 0.2 MG TAB PO SCH (21:33)
[2017-11-12] MEDS: FERROUS SULFATE 325 MG TAB PO SCH (21:36)
[2017-11-12] MEDS: LORATADINE 10 MG TAB PO SCH (21:36)
[2017-11-12] MEDS: SENNOSIDES-DOCUSATE SODIUM 1 EACH TAB PO SCH (21:36)
[2017-11-12] MEDS: DONEPEZIL 10 MG TAB PO SCH (21:36)
[2017-11-12] MEDS: lamoTRIgine 25 MG TAB PO SCH (21:36)
[2017-11-12] MEDS: LEVOTHYROXINE 75 MCG TAB PO SCH (21:36)
[2017-11-12] MEDS: ATORVASTATIN 40 MG TAB PO SCH (21:36)
[2017-11-12] MEDS: ALBUTEROL NEBULIZED 2.5 MG/3 ML INHALATION PRN (21:57)
[2017-11-13] MEDS: MORPHINE SULFATE 4 MG/ML SYRINGE IVP PRN ×3 (01:05→17:00)
[2017-11-13] MEDS: LACTATED RINGERS 1,000 ML IV SCH ×2 (04:20→13:57)
[2017-11-13] MEDS: HYDROcodone/APAP 10-325MG 1 EACH TAB PO PRN ×3 (04:56→19:37)
[2017-11-13 07:07] LABS: Glucose,Whole Blood 93 mg/dL (75-99)
[2017-11-13 07:53] LABS: Basophils % (A) 1 %; Eosinophils # (A) 0.2 k/uL (0-0.7); Eosinophils % (A) 3 %; HGB 9.4 gm/dL (11.4-16.0); Hypochromasia Marked; Lymphocytes % (A) 15 %; MCH 24.3 pg (25.0-35.0); MCHC 30.2 g/dL (31.0-37.0); MCV 80.4 fL (80.0-100.0); Monocytes # (A) 0.6 k/uL (0-1.0); Monocytes % (A) 9 %; Neutrophils # (A) 4.9 k/uL (1.3-7.7); Neutrophils % (A) 71 %; Platelet Count 247 k/uL (150-450); RBC 3.86 m/uL (3.80-5.40); WBC 6.9 k/uL (3.8-10.6)
[2017-11-13 08:09] LABS: Albumin 3.3 g/dL (3.5-5.0); Calcium 8.8 mg/dL (8.4-10.2); Potassium 4.2 mmol/L (3.5-5.1); Total Bilirubin 0.4 mg/dL (0.2-1.3); Total Protein 5.8 g/dL (6.3-8.2)
[2017-11-13] MEDS: INSULIN ASPART 100 UNIT/ML 1 ML 10 ML VIAL SQ SCH ×4 (08:23→21:11)
[2017-11-13] MEDS: metFORMIN 850 MG TAB PO SCH ×3 (08:36→17:04)
[2017-11-13] MEDS: GABAPENTIN 400 MG CAP PO SCH ×4 (08:36→21:28)
[2017-11-13] MEDS: PANTOPRAZOLE 40 MG TABLET PO SCH (08:36)
[2017-11-13] MEDS: SUCRALFATE 1 GM TAB PO SCH ×2 (08:36→17:04)
[2017-11-13] MEDS: MELOXICAM 7.5 MG TAB PO SCH (08:36)
[2017-11-13] MEDS: FAMOTIDINE 20 MG TAB PO SCH (08:36)
[2017-11-13] MEDS: ENOXAPARIN 30 MG/0.3 ML SYRINGE SQ SCH ×2 (08:36→21:29)
[2017-11-13] MEDS: traMADol 50 MG TAB PO SCH ×4 (08:37→21:28)
[2017-11-13] MEDS: DULoxetine HCL 60 MG CAPSULE.DR PO SCH (08:37)
[2017-11-13] MEDS: ADDERALL 30MG PO SCH (08:37)
--- NOTE | 2017-11-13 09:26 | P.PN ---
Progress Note - Text The patient is status post right adductor canal catheter placement. The catheter was placed for postoperative pain control, status post total right arthroplasty. Ropivacaine 0.2% is infusing at 8 mLs per hour. The patient has no complaints of right lower extremity numbness or weakness. Patient's VAS score is 1-2-10. Assessment: Patient's adductor canal catheter is in place and working appropriately. Plan: continue infusion and adjust it as needed.
[2017-11-13] MEDS: FERROUS SULFATE 325 MG TAB PO SCH ×2 (09:39→21:28)
[2017-11-13 11:50] LABS: Glucose,Whole Blood 112 mg/dL (75-99)
--- NOTE | 2017-11-13 11:54 | P.PN ---
Subjective Progress Note Date: 11/13/17 Principal diagnosis: s/p right tka Patient seen today resting in her hospital chair, she appears comfortable. She' s ambulated well with therapy. She denies any headaches, lightheadedness, chest pain or shortness of breath. Objective - Vital Signs Vital signs: Vital Signs Temp 99.2 F 11/13/17 07:00 Pulse 100 11/13/17 07:00 Resp 16 11/13/17 07:00 BP 135/64 11/13/17 07:00 Pulse Ox 92 L 11/13/17 07:00 Intake & Output 11/12/17 11/13/17 11/13/17 18:59 06:59 18:59 Intake Total 140 Balance 140 Intake: Oral 140 Other: Voiding Method Toilet # Voids 2 4 - Exam Right lower extremity: Incision is clean, dry, and intact. The frederick are in good condition. There is minimal soft tissue swelling and ecchymosis surrounding the medial and lateral aspects of the incision. Calf is soft, no tenderness with palpation. Plantar flexion, dorsiflexion, EHL, FHL are intact. Sensory exam to light touch throughout the extremity is intact, dorsal pedis pulses 2+. - Labs CBC & Chem 7: 11/13/17 07:03 11/13/17 07:03 Labs: Abnormal Lab Results - Last 24 Hours (Table) 11/12/17 11/12/17 11/13/17 Range/Units 06:37 20:19 07:03 Hgb (11.4-16.0) gm/dL Hct (34.0-46.0) % MCH (25.0-35.0) pg MCHC (31.0-37.0) g/dL RDW (11.5-15.5) % POC Glucose (mg/dL) 122 H (75-99) mg/dL Hemoglobin A1c 6.3 H (4.0-6.0) % AST 158 H (14-36) U/L ALT 132 H (9-52) U/L Alkaline Phosphatase 148 H (38-126) U/L Total Protein 5.8 L (6.3-8.2) g/dL Albumin 3.3 L (3.5-5.0) g/dL 11/13/17 11/13/17 Range/Units 07:03 11:40 Hgb 9.4 L (11.4-16.0) gm/dL Hct 31.0 L (34.0-46.0) % MCH 24.3 L (25.0-35.0) pg MCHC 30.2 L (31.0-37.0) g/dL RDW 16.0 H (11.5-15.5) % POC Glucose (mg/dL) 112 H (75-99) mg/dL Hemoglobin A1c (4.0-6.0) % AST (14-36) U/L ALT (9-52) U/L Alkaline Phosphatase (38-126) U/L Total Protein (6.3-8.2) g/dL Albumin (3.5-5.0) g/dL Assessment and Plan Plan: Assessment: 1. Postop day #2 status post right total knee arthroplasty Plan: 1. Pain control, will continue with current oral medication. 2. Continue work with physical therapy and use of CPM 3. Daily dressing changes/ice and elevate 4. Encourage incentive spirometer 5. GI and DVT prophylaxis, continue use of Lovenox during inpatient stay 6. Medical recommendations 7. Discharge planning: Patient will likely be discharged to rehab tomorrow Time with Patient: Less than 30
[2017-11-13] MEDS: QUEtiapine 50 MG TAB PO SCH ×3 (12:48→21:30)
[2017-11-13] MEDS: ALBUTEROL NEBULIZED 2.5 MG/3 ML INHALATION PRN ×2 (16:31→21:47)
[2017-11-13] MEDS ORDERED: HYDROmorphone 2 MG TAB PO PRN (17:10)
[2017-11-13] MEDS ORDERED: HYDROmorphone 4 MG TABLET PO PRN (17:10)
[2017-11-13 17:57] LABS: Glucose,Whole Blood 107 mg/dL (75-99)
--- NOTE | 2017-11-13 18:21 | P.PN ---
Subjective Progress Note Date: 11/13/17 This is a 62-year-old female, a patient of Dr. Jennings. She has a known past medical history of osteoarthritis, hypothyroidism, hyperlipidemia, diabetes mellitus, obstructive sleep apnea, dementia, ADHD, bipolar, schizophrenia, anxiety and depression. Patient is status post a total knee arthroplasty. Postop day #0. Estimated blood loss 40 amount. No complications reported. She is artery sitting up at bedside chair. Pain is tolerable. She is reporting some numbness in the right heel. We have been consulted for medical management. She denies any fever, chills, sweats, nausea or vomiting, bowel movement changes or urinary symptoms. On 11/13/2017 patient was complaining of severe pain in her knee pain medication adjusted by orthopedic surgeon patient is feeling better now. Today patient has evidence of elevated liver enzymes likely related to pain medication and atorvastatin, besides knee pain patient is denying any symptoms Objective - Vital Signs Vital signs: Vital Signs Temp 98.8 F 11/13/17 15:00 Pulse 92 11/13/17 16:42 Resp 15 11/13/17 15:00 BP 147/84 11/13/17 15:00 Pulse Ox 94 L 11/13/17 15:00 Intake & Output 11/12/17 11/13/17 11/13/17 18:59 06:59 18:59 Intake Total 140 Balance 140 Intake: Oral 140 Other: Voiding Method Toilet # Voids 2 4 2 - Exam Head normocephalic and atraumatic Neck supple no JVD Lungs clear to auscultation bilaterally no wheezing or crackles Heart regular rate and rhythm S1-S2, no rub or gallop Abdomen is soft nontender nondistended positive bowel sounds no hepatosplenomegaly Extremities no edema. Right knee is Melvin wrapped. Patient is able to wiggle her toes. She has decreased sensation in the right heel Neuro alert and orientated to 3 - Labs CBC & Chem 7: 11/13/17 07:03 11/13/17 07:03 Labs: Abnormal Lab Results - Last 24 Hours (Table) 11/12/17 11/12/17 11/13/17 Range/Units 06:37 20:19 07:03 Hgb (11.4-16.0) gm/dL Hct (34.0-46.0) % MCH (25.0-35.0) pg MCHC (31.0-37.0) g/dL RDW (11.5-15.5) % POC Glucose (mg/dL) 122 H (75-99) mg/dL Hemoglobin A1c 6.3 H (4.0-6.0) % AST 158 H (14-36) U/L ALT 132 H (9-52) U/L Alkaline Phosphatase 148 H (38-126) U/L Total Protein 5.8 L (6.3-8.2) g/dL Albumin 3.3 L (3.5-5.0) g/dL 11/13/17 11/13/17 11/13/17 Range/Units 07:03 11:40 17:05 Hgb 9.4 L (11.4-16.0) gm/dL Hct 31.0 L (34.0-46.0) % MCH 24.3 L (25.0-35.0) pg MCHC 30.2 L (31.0-37.0) g/dL RDW 16.0 H (11.5-15.5) % POC Glucose (mg/dL) 112 H 107 H (75-99) mg/dL Hemoglobin A1c (4.0-6.0) % AST (14-36) U/L ALT (9-52) U/L Alkaline Phosphatase (38-126) U/L Total Protein (6.3-8.2) g/dL Albumin (3.5-5.0) g/dL Assessment and Plan Plan: 1. Osteoarthritis of the right knee: Status post right total knee arthroplasty. Postop day #0. Continue pain medications per orthopedic protocol. Continue Lovenox for DVT prophylaxis 2. Obstructive sleep apnea she will bring CPAP from home 3. History of bipolar and schizophrenia: Resume psychiatric meds 4. Diabetes mellitus type 2: Resume metformin. Add sliding scale coverage. Check A1c 5. Hyperlipidemia 6. ADHD okay for patient to bring Adderall from home 7. COPD history continue the albuterol as needed. Stable and no evidence of exacerbation. Former smoker quit several years ago 8. Hypothyroidism continue Synthroid 9. elevated liver enzymes will hold Lipitor at this time GI prophylaxis Pepcid and DVT prophylaxis Lovenox Possible transfer to rehab tomorrow
[2017-11-13] MEDS: hydrOXYzine PAMOATE 25 MG CAP PO PRN (19:37)
[2017-11-13 20:52] LABS: Glucose,Whole Blood 115 mg/dL (75-99)
[2017-11-13] MEDS: cloNIDine HCL 0.2 MG TAB PO SCH (21:21)
[2017-11-13] MEDS: DONEPEZIL 10 MG TAB PO SCH (21:27)
[2017-11-13] MEDS: lamoTRIgine 25 MG TAB PO SCH (21:27)
[2017-11-13] MEDS: SENNOSIDES-DOCUSATE SODIUM 1 EACH TAB PO SCH (21:27)
[2017-11-13] MEDS: LEVOTHYROXINE 75 MCG TAB PO SCH (21:28)
[2017-11-13] MEDS: LORATADINE 10 MG TAB PO SCH (21:28)
[2017-11-13] MEDS: HYDROmorphone 2 MG TAB PO PRN (22:44)
[2017-11-14] MEDS: hydrOXYzine PAMOATE 25 MG CAP PO PRN ×4 (01:25→21:00)
[2017-11-14] MEDS: HYDROcodone/APAP 10-325MG 1 EACH TAB PO PRN ×4 (01:25→21:00)
[2017-11-14] MEDS: HYDROmorphone 2 MG TAB PO PRN ×3 (04:35→17:29)
[2017-11-14] MEDS: LACTATED RINGERS 1,000 ML IV SCH ×4 (06:26→21:03)
[2017-11-14 07:26] LABS: Glucose,Whole Blood 136 mg/dL (75-99)
[2017-11-14 07:28] LABS: Basophils # (A) 0.1 k/uL (0-0.2); Basophils % (A) 1 %; Eosinophils # (A) 0.4 k/uL (0-0.7); Eosinophils % (A) 6 %; HCT 30.5 % (34.0-46.0); HGB 9.7 gm/dL (11.4-16.0); Hypochromasia Slight; Lymphocytes # (A) 1.4 k/uL (1.0-4.8); Lymphocytes % (A) 18 %; MCH 24.8 pg (25.0-35.0); MCHC 31.9 g/dL (31.0-37.0); MCV 77.9 fL (80.0-100.0); Mean Platelet Volume 7.7; Microcytosis Slight; Monocytes # (A) 0.6 k/uL (0-1.0); Monocytes % (A) 7 %; Neutrophils # (A) 5.3 k/uL (1.3-7.7); Neutrophils % (A) 67 %; Platelet Count 263 k/uL (150-450); RBC 3.92 m/uL (3.80-5.40); RDW 15.5 % (11.5-15.5); WBC 7.9 k/uL (3.8-10.6)
[2017-11-14 07:32] LABS: ALT 95 U/L (9-52); AST 50 U/L (14-36); Albumin 3.1 g/dL (3.5-5.0); Alkaline Phosphatase 139 U/L (38-126); Anion Gap 8 mmol/L; Blood Urea Nitrogen 13 mg/dL (7-17); Calcium 8.8 mg/dL (8.4-10.2); Carbon Dioxide 29 mmol/L (22-30); Chloride 102 mmol/L (98-107); Glucose 124 mg/dL (74-99); Sodium 139 mmol/L (137-145); Total Bilirubin 0.4 mg/dL (0.2-1.3); Total Protein 5.5 g/dL (6.3-8.2)
[2017-11-14] MEDS: INSULIN ASPART 100 UNIT/ML 1 ML 10 ML VIAL SQ SCH ×4 (07:53→21:04)
[2017-11-14] MEDS: ADDERALL 30MG PO SCH (07:55)
[2017-11-14] MEDS: GABAPENTIN 400 MG CAP PO SCH ×4 (07:55→21:01)
[2017-11-14] MEDS: FAMOTIDINE 20 MG TAB PO SCH (07:55)
[2017-11-14] MEDS: SUCRALFATE 1 GM TAB PO SCH ×2 (07:55→17:29)
[2017-11-14] MEDS: metFORMIN 850 MG TAB PO SCH ×3 (07:55→17:29)
[2017-11-14] MEDS: PANTOPRAZOLE 40 MG TABLET PO SCH (07:55)
[2017-11-14] MEDS: DULoxetine HCL 60 MG CAPSULE.DR PO SCH (07:56)
[2017-11-14] MEDS: MELOXICAM 7.5 MG TAB PO SCH (07:56)
[2017-11-14] MEDS: FERROUS SULFATE 325 MG TAB PO SCH ×2 (07:57→21:01)
[2017-11-14] MEDS: traMADol 50 MG TAB PO SCH ×4 (07:58→23:49)
[2017-11-14] MEDS: ENOXAPARIN 30 MG/0.3 ML SYRINGE SQ SCH ×2 (07:58→21:00)
[2017-11-14] MEDS: ALBUTEROL NEBULIZED 2.5 MG/3 ML INHALATION PRN ×3 (09:03→18:50)
--- NOTE | 2017-11-14 09:56 | P.PN ---
Subjective Progress Note Date: 11/14/17 Principal diagnosis: s/p right tka Patient seen today resting in her hospital chair, she appears comfortable. She' s ambulated well with therapy. She denies any headaches, lightheadedness, chest pain or shortness of breath. Objective - Vital Signs Vital signs: Vital Signs Temp 97.6 F 11/14/17 07:00 Pulse 88 11/14/17 09:13 Resp 21 11/14/17 07:00 BP 135/71 11/14/17 07:00 Pulse Ox 96 11/14/17 07:00 Intake & Output 11/13/17 11/14/17 11/14/17 18:59 06:59 18:59 Intake Total 460 480 Balance 460 480 Intake: Intake, IV Titration 160 Amount Lactated Ringers 1,000 ml 160 @ 100 mls/hr IV .Q10H LISANDRA Rx#:[id number] Oral 480 Other 300 Other: # Voids 2 4 1 - Exam Right lower extremity: Incision is clean, dry, and intact. The frederick are in good condition. There is minimal soft tissue swelling and ecchymosis surrounding the medial and lateral aspects of the incision. Calf is soft, no tenderness with palpation. Plantar flexion, dorsiflexion, EHL, FHL are intact. Sensory exam to light touch throughout the extremity is intact, dorsal pedis pulses 2+. - Labs CBC & Chem 7: 11/14/17 06:43 11/14/17 06:43 Labs: Abnormal Lab Results - Last 24 Hours (Table) 11/13/17 11/13/17 11/13/17 Range/Units 11:40 17:05 20:49 Hgb (11.4-16.0) gm/dL Hct (34.0-46.0) % MCV (80.0-100.0) fL MCH (25.0-35.0) pg Glucose (74-99) mg/dL POC Glucose (mg/dL) 112 H 107 H 115 H (75-99) mg/dL AST (14-36) U/L ALT (9-52) U/L Alkaline Phosphatase (38-126) U/L Total Protein (6.3-8.2) g/dL Albumin (3.5-5.0) g/dL 11/14/17 11/14/17 11/14/17 Range/Units 06:43 06:43 07:16 Hgb 9.7 L (11.4-16.0) gm/dL Hct 30.5 L (34.0-46.0) % MCV 77.9 L (80.0-100.0) fL MCH 24.8 L (25.0-35.0) pg Glucose 124 H (74-99) mg/dL POC Glucose (mg/dL) 136 H (75-99) mg/dL AST 50 H (14-36) U/L ALT 95 H (9-52) U/L Alkaline Phosphatase 139 H (38-126) U/L Total Protein 5.5 L (6.3-8.2) g/dL Albumin 3.1 L (3.5-5.0) g/dL Assessment and Plan Plan: Assessment: 1. Postop day #3 status post right total knee arthroplasty Plan: 1. Pain control, will continue with current oral medication. 2. Continue work with physical therapy and use of CPM 3. Daily dressing changes/ice and elevate 4. Encourage incentive spirometer 5. GI and DVT prophylaxis, plan for discharge on aspirin 325 mg twice a day 6. Medical recommendations 7. Discharge planning: Patient will be discharged to rehab today Time with Patient: Less than 30
--- NOTE | 2017-11-14 10:00 | P.DS ---
Providers Date of admission: 11/11/17 08:14 Expected date of discharge: 11/14/17 Attending physician: Jairon Herring Consults: 11/11/17 11:36 Consult Physician Routine Consulting Provider: Luisa Jennings Consult Reason/Comments: Medical management Do you want consulting provider notified?: Yes 11/11/17 14:38 Consult Physician Routine Consulting Provider: Shwetha Yusuf Consult Reason/Comments: medical management Do you want consulting provider notified?: Already Contacted Primary care physician: Luisa Jennings Hospital Course: Date of admission: 11/11/2017 Date of discharge: 11/14/2017 Admission diagnosis: Status post right total knee arthroplasty Discharge diagnosis: Same Attending physician: Dr. Herring Surgical procedures: Right total knee arthroplasty Brief history: Patient is a 62-year-old female with a history of progressive primary right knee osteoarthritis. At this point patient has failed conservative treatment measures and has opted to proceed with a elective right total knee arthroplasty. Hospital course: Details of patient's surgery can be found in operative report. Patient tolerated the procedure well and was subsequently transported to orthopedic floor. Patient's orthopeidc and medical care was provided daily. Patient had daily laboratory tests performed for evaluation of overall blood counts. Patient had daily physical therapy to include strengthening range of motion as well as education with walker ambulation. Patient had daily CPM usage as part of their physical therapy program. Patient was treated with Lovenox for their postoperative DVT prophylaxis during their inpatient stay. Patient was noted to have a relatively uneventful postoperative course. Patient reported satisfactory pain control with oral pain medications by postoperative day 0. Patient showed satisfactory progress with physical therapy. Patient moved steadily through the program and had no difficulty meeting the goals by postoperative day 3. Given patient's otherwise satisfactory course and having met physical therapy goals, plan is to discharge patient rehab on postoperative day 3. Discharge condition/disposition: Patient will be discharged rehab in stable condition. Discharge medications: Instructions are given on resumption of patient's normal daily medications per primary care recommendation, in addition patient will be prescribed [place] 10 mg/325 mg, tramadol 50 mg, aspirin 325 mg, Colace 100 mg. Discharge instructions: 1. Wound care and infection precautions, keep incision dry and covered while showering, no lotions, creams, moisturizers. No soaking, tubs, pools, hottubs. Do not scrub over the incision. 2. Weight-bear as tolerated with walker / cane until follow-up. 3. Ice and elevate when necessary. Do not exceed 20 minutes per hour with ice pack. 4. Utilize compression sleeve until seen at first follow up appointment. 5. Visiting nursing care. 6. Home physical therapy including home CPM. 7. Pain meds and anticoagulants per prescription. 8. Pain medication has potential to cause constipation. Increase oral fluid and fiber intake. Contact primary care provider if you have not had a bowel movement within 48 hours after discharge 9. No anti-inflammatory medication until discussed at first post operative visit, this including Motrin, Aleve, Mobic, Diclofenac. 10. Follow up in office at 2 weeks postop with David Joseph PA-C 11. Follow up with your primary care doctor 7-10 days after discharge. 12. Contact [facility] with any questions, . Procedures: Right total knee arthroplasty Patient Condition at Discharge: Good Plan - Discharge Summary Discharge Rx Participant: Yes New Discharge Prescriptions: New Aspirin 325 mg PO BID #60 tab Docusate [Colace] 100 mg PO DAILY #30 capsule Hydrocodone/Acetaminophen [[place] 10-325] 1 each PO Q6H PRN #60 tab PRN Reason: Pain traMADol HCl [Ultram] 50 mg PO Q6H PRN #40 tab PRN Reason: Pain No Action Donepezil HCl [Aricept] 10 mg PO HS Sucralfate [Carafate] 1 gm PO BID Loratadine [Claritin] 10 mg PO HS Gabapentin [Neurontin] 400 mg PO QID DULoxetine HCL [Cymbalta] 120 mg PO QAM QUEtiapine XR [SEROquel XR] 150 mg PO W/LUNCH Pantoprazole Sodium 40 mg PO QAM metFORMIN HCL [Glucophage] 850 mg PO TID Ibandronate Sodium [Boniva] 150 mg PO Q30D Nitroglycerin Sl Tabs [Nitrostat] 0.4 mg SUBLINGUAL Q5M PRN PRN Reason: Chest Pain Albuterol Inhaler [Ventolin Hfa Inhaler] 2 puff INHALATION RT-Q6H PRN PRN Reason: Shortness Of Breath Albuterol Nebulized [Ventolin Nebulized] 2.5 mg INHALATION RT-TID PRN PRN Reason: Shortness Of Breath Ergocalciferol (Vitamin D2) [Vitamin D2] 50,000 unit PO [place] Levothyroxine Sodium [Synthroid] 75 mcg PO HS QUEtiapine XR [SEROquel XR] 150 mg PO HS QUEtiapine XR [SEROquel XR] 150 mg PO W/SUPPER Dextroamphetamine/Amphetamine [Adderall] 30 mg PO DAILY Ferrous Sulfate [Iron (65 MG Elemental)] 325 mg PO DAILY cloNIDine HCL [Catapres] 0.2 mg PO HS SUMAtriptan SUCCINATE [Imitrex] 100 mg PO TID PRN PRN Reason: Migraine Headache lamoTRIgine [LaMICtal] 25 mg PO HS Bismuth Subsalicylate [Pepto-Bismol] 262 mg PO BID PRN PRN Reason: Indigestion Discharge Medication List Albuterol Inhaler [Ventolin Hfa Inhaler] 2 puff INHALATION RT-Q6H PRN 10/17/15 [ History] DULoxetine HCL [Cymbalta] 120 mg PO QAM 10/17/15 [History] Donepezil HCl [Aricept] 10 mg PO HS 10/17/15 [History] Gabapentin [Neurontin] 400 mg PO QID 10/17/15 [History] Ibandronate Sodium [Boniva] 150 mg PO Q30D 10/17/15 [History] Loratadine [Claritin] 10 mg PO HS 10/17/15 [History] Nitroglycerin Sl Tabs [Nitrostat] 0.4 mg SUBLINGUAL Q5M PRN 10/17/15 [History] Pantoprazole Sodium 40 mg PO QAM 10/17/15 [History] QUEtiapine XR [SEROquel XR] 150 mg PO W/LUNCH 10/17/15 [History] Sucralfate [Carafate] 1 gm PO BID 10/17/15 [History] metFORMIN HCL [Glucophage] 850 mg PO TID 10/17/15 [History] Albuterol Nebulized [Ventolin Nebulized] 2.5 mg INHALATION RT-TID PRN 10/31/15 [ History] Ergocalciferol (Vitamin D2) [Vitamin D2] 50,000 unit PO [place] 01/07/17 [History] Levothyroxine Sodium [Synthroid] 75 mcg PO HS 01/07/17 [History] QUEtiapine XR [SEROquel XR] 150 mg PO HS 01/07/17 [History] QUEtiapine XR [SEROquel XR] 150 mg PO W/SUPPER 01/07/17 [History] Bismuth Subsalicylate [Pepto-Bismol] 262 mg PO BID PRN 10/31/17 [History] Dextroamphetamine/Amphetamine [Adderall] 30 mg PO DAILY 10/31/17 [History] Ferrous Sulfate [Iron (65 MG Elemental)] 325 mg PO DAILY 10/31/17 [History] SUMAtriptan SUCCINATE [Imitrex] 100 mg PO TID PRN 10/31/17 [History] cloNIDine HCL [Catapres] 0.2 mg PO HS 10/31/17 [History] lamoTRIgine [LaMICtal] 25 mg PO HS 10/31/17 [History] Aspirin 325 mg PO BID #60 tab 11/14/17 [Rx] Docusate [Colace] 100 mg PO DAILY #30 capsule 11/14/17 [Rx] Hydrocodone/Acetaminophen [[place] 10-325] 1 each PO Q6H PRN #60 tab 11/14/17 [Rx] traMADol HCl [Ultram] 50 mg PO Q6H PRN #40 tab 11/14/17 [Rx] Follow up Appointment(s)/Referral(s): Chuck Joseph PAC [PHYSICIAN TEASEL SETTER] - 2 Weeks Activity/Diet/Wound Care/Special Instructions: Orthopedic Discharge Instructions: 1. Wound care and infection precautions, keep incision dry and covered while showering, no lotions, creams, moisturizers. No soaking, pools, hot tubs. Do not scrub over incision. 2. Weight-bear as tolerated with walker / cane until follow-up. 3. Ice and elevate when necessary. Do not exceed 20 minutes per hour with ice pack. 4. Utilize compression sleeve until seen at first follow up appointment. 5. Visiting nursing care. 6. Home physical therapy including home CPM. 7. Pain meds and anticoagulants per prescription. 8. Pain medication has potential to cause constipation. Increase oral fluid and fiber intake. Contact primary care provider if you have not had a bowel movement within 48 hours after discharge. 9. No anti-inflammatory medication until discussed at first post operative visit, this including Motrin, Aleve, Mobic, Diclofenac. 10. Follow up in office at 2 weeks postop with David Joseph PA-C 11. Follow up with your primary care doctor 7-10 days after discharge. 12. Contact [facility] with any questions, . Discharge Disposition: TRANSFER TO SNF/ECF
[2017-11-14 11:28] LABS: Glucose,Whole Blood 126 mg/dL (75-99)
[2017-11-14] MEDS: QUEtiapine 50 MG TAB PO SCH ×3 (12:26→21:01)
--- NOTE | 2017-11-14 12:33 | P.PN ---
Subjective Progress Note Date: 11/14/17 Status post right total knee arthroplasty Patient is doing well. Pain is controlled. Denies any chest pain shortness of breath. Denies any nausea or vomiting. She is passing gas. Has small bowel movement. Denies any burning with urination. She's scheduled for discharge to [facility] today Objective - Vital Signs Vital signs: Vital Signs Temp 97.6 F 11/14/17 07:00 Pulse 88 11/14/17 09:13 Resp 21 11/14/17 07:00 BP 135/71 11/14/17 07:00 Pulse Ox 96 11/14/17 07:00 Intake & Output 11/13/17 11/14/17 11/14/17 18:59 06:59 18:59 Intake Total 460 480 Balance 460 480 Intake: Intake, IV Titration 160 Amount Lactated Ringers 1,000 ml 160 @ 100 mls/hr IV .Q10H ILSANDRA Rx#:[id number] Oral 480 Other 300 Other: # Voids 2 4 1 - Exam Head normocephalic Neck supple Lungs clear to auscultation bilaterally no wheezing or crackles Heart regular rate and rhythm S1-S2, no rub or gallop Abdomen is soft nontender nondistended positive bowel sounds no hepatosplenomegaly Extremities no edema Neuro alert and orientated to 3 - Labs CBC & Chem 7: 11/14/17 06:43 11/14/17 06:43 Labs: Abnormal Lab Results - Last 24 Hours (Table) 11/13/17 11/13/17 11/14/17 Range/Units 17:05 20:49 06:43 Hgb 9.7 L (11.4-16.0) gm/dL Hct 30.5 L (34.0-46.0) % MCV 77.9 L (80.0-100.0) fL MCH 24.8 L (25.0-35.0) pg Glucose (74-99) mg/dL POC Glucose (mg/dL) 107 H 115 H (75-99) mg/dL AST (14-36) U/L ALT (9-52) U/L Alkaline Phosphatase (38-126) U/L Total Protein (6.3-8.2) g/dL Albumin (3.5-5.0) g/dL 11/14/17 11/14/17 11/14/17 Range/Units 06:43 07:16 11:20 Hgb (11.4-16.0) gm/dL Hct (34.0-46.0) % MCV (80.0-100.0) fL MCH (25.0-35.0) pg Glucose 124 H (74-99) mg/dL POC Glucose (mg/dL) 136 H 126 H (75-99) mg/dL AST 50 H (14-36) U/L ALT 95 H (9-52) U/L Alkaline Phosphatase 139 H (38-126) U/L Total Protein 5.5 L (6.3-8.2) g/dL Albumin 3.1 L (3.5-5.0) g/dL Assessment and Plan Assessment: 1. Osteoarthritis of the right knee: Status post right total knee arthroplasty. Continue pain medications per orthopedic protocol. Continue aspirin twice a day for DVT prophylaxis 2. Obstructive sleep apnea she will bring CPAP from home 3. History of bipolar and schizophrenia: Resume psychiatric meds 4. Diabetes mellitus type 2: Resume metformin. Add sliding scale coverage. 5. Hyperlipidemia 6. ADHD okay for patient to bring Adderall from home 7. COPD history continue the albuterol as needed. Stable and no evidence of exacerbation. Former smoker quit several years ago 8. Hypothyroidism continue Synthroid 9. Acute blood loss anemia expected after surgery. Hemoglobin 9.7. Start ferrous sulfate 325 mg twice a day. Check CBC in 1 week 10. Elevated LFTs likely related to Lipitor. Lipitor discontinued. LFTs are trending down. No abdominal pain. Status post cholecystectomy. And will check LFTs in 1 week GI prophylaxis Pepcid and DVT prophylaxis Lovenox Patient is medically stable for discharge. We'll have Dr. Colbert to follow at [facility]. Recommend checking CBC and LFTs in 1 week I performed an examination of the patient and discussed their management with the physician Manager Servicing. I have reviewed the Physician Manager Servicing's notes and agree with the documented findings and plan of care
[2017-11-14 17:21] LABS: Glucose,Whole Blood 111 mg/dL (75-99)
[2017-11-14] MEDS: LORATADINE 10 MG TAB PO SCH (21:01)
[2017-11-14] MEDS: cloNIDine HCL 0.2 MG TAB PO SCH (21:01)
[2017-11-14] MEDS: lamoTRIgine 25 MG TAB PO SCH (21:01)
[2017-11-14] MEDS: DONEPEZIL 10 MG TAB PO SCH (21:01)
[2017-11-14] MEDS: SENNOSIDES-DOCUSATE SODIUM 1 EACH TAB PO SCH (21:02)
[2017-11-14] MEDS: LEVOTHYROXINE 75 MCG TAB PO SCH (21:02)
[2017-11-14 21:07] LABS: Glucose,Whole Blood 117 mg/dL (75-99)
[2017-11-15] MEDS: hydrOXYzine PAMOATE 25 MG CAP PO PRN ×3 (03:15→14:23)
[2017-11-15] MEDS: HYDROcodone/APAP 10-325MG 1 EACH TAB PO PRN ×3 (03:15→14:23)
[2017-11-15 07:12] LABS: Glucose,Whole Blood 108 mg/dL (75-99)
[2017-11-15 07:22] LABS: ALT 226 U/L (9-52); AST 151 U/L (14-36); Albumin 3.1 g/dL (3.5-5.0); Alkaline Phosphatase 202 U/L (38-126); Anion Gap 8 mmol/L; Blood Urea Nitrogen 12 mg/dL (7-17); Carbon Dioxide 31 mmol/L (22-30); Chloride 100 mmol/L (98-107); Glucose 103 mg/dL (74-99); Potassium 4.4 mmol/L (3.5-5.1); Sodium 139 mmol/L (137-145); Total Bilirubin 0.5 mg/dL (0.2-1.3); Total Protein 5.6 g/dL (6.3-8.2)
[2017-11-15] MEDS: INSULIN ASPART 100 UNIT/ML 1 ML 10 ML VIAL SQ SCH ×2 (08:14→12:07)
[2017-11-15] MEDS: traMADol 50 MG TAB PO SCH ×2 (08:21→12:09)
[2017-11-15] MEDS: PANTOPRAZOLE 40 MG TABLET PO SCH (08:21)
[2017-11-15] MEDS: SUCRALFATE 1 GM TAB PO SCH (08:21)
[2017-11-15] MEDS: metFORMIN 850 MG TAB PO SCH ×2 (08:21→12:09)
[2017-11-15 08:36] VITALS: BP 129/77; PULSE 101; RESP 16; TEMP 98.5
[2017-11-15] MEDS: ADDERALL 30MG PO SCH (08:52)
[2017-11-15] MEDS: ENOXAPARIN 30 MG/0.3 ML SYRINGE SQ SCH (08:59)
[2017-11-15] MEDS: FERROUS SULFATE 325 MG TAB PO SCH (09:00)
[2017-11-15] MEDS: FAMOTIDINE 20 MG TAB PO SCH (09:00)
[2017-11-15] MEDS: MELOXICAM 7.5 MG TAB PO SCH (09:00)
[2017-11-15] MEDS: DULoxetine HCL 60 MG CAPSULE.DR PO SCH (09:00)
[2017-11-15] MEDS: GABAPENTIN 400 MG CAP PO SCH ×2 (09:00→12:09)
[2017-11-15 11:30] LABS: Glucose,Whole Blood 117 mg/dL (75-99)
[2017-11-15] MEDS: QUEtiapine 50 MG TAB PO SCH (12:10)
--- NOTE | 2017-11-15 12:46 | P.PN ---
Subjective Progress Note Date: 11/15/17 Principal diagnosis: s/p right tka Patient seen today resting in her hospital chair, she appears comfortable. Patient notes some pain in the right foot and ankle. She denies any headaches, lightheadedness, chest pain or shortness of breath. Objective - Vital Signs Vital signs: Vital Signs Temp 98.5 F 11/15/17 07:00 Pulse 101 H 11/15/17 07:00 Resp 16 11/15/17 07:00 BP 129/77 11/15/17 07:00 Pulse Ox 92 L 11/15/17 07:00 Intake & Output 11/14/17 11/15/17 11/15/17 18:59 06:59 18:59 Intake Total 1320 960 360 Balance 1320 960 360 Intake: Intake, IV Titration 120 Amount Lactated Ringers 1,000 ml 120 @ 100 mls/hr IV .Q10H LISANDRA Rx#:[id number] Oral 1200 960 360 Other: Voiding Method Toilet # Voids 1 4 - Exam Right lower extremity: Incision is clean, dry, and intact. The frederick are in good condition. There is minimal soft tissue swelling and ecchymosis surrounding the medial and lateral aspects of the incision. Calf is soft, no tenderness with palpation. Plantar flexion, dorsiflexion, EHL, FHL are intact. Sensory exam to light touch throughout the extremity is intact, dorsal pedis pulses 2+. - Labs CBC & Chem 7: 11/14/17 06:43 11/15/17 06:37 Labs: Abnormal Lab Results - Last 24 Hours (Table) 11/14/17 11/14/17 11/15/17 Range/Units 17:19 21:03 06:37 Carbon Dioxide 31 H (22-30) mmol/L Glucose 103 H (74-99) mg/dL POC Glucose (mg/dL) 111 H 117 H (75-99) mg/dL AST 151 H (14-36) U/L ALT 226 H (9-52) U/L Alkaline Phosphatase 202 H (38-126) U/L Total Protein 5.6 L (6.3-8.2) g/dL Albumin 3.1 L (3.5-5.0) g/dL 11/15/17 11/15/17 Range/Units 07:08 11:18 Carbon Dioxide (22-30) mmol/L Glucose (74-99) mg/dL POC Glucose (mg/dL) 108 H 117 H (75-99) mg/dL AST (14-36) U/L ALT (9-52) U/L Alkaline Phosphatase (38-126) U/L Total Protein (6.3-8.2) g/dL Albumin (3.5-5.0) g/dL Assessment and Plan Plan: Assessment: 1. Postop day #4 status post right total knee arthroplasty Plan: 1. Pain control, will continue with current oral medication. 2. Continue work with physical therapy and use of CPM 3. Daily dressing changes/ice and elevate 4. Encourage incentive spirometer 5. GI and DVT prophylaxis, plan for discharge on aspirin 325 mg twice a day 6. Medical recommendations 7. Discharge planning: Awaiting insurance clearance for discharge Time with Patient: Less than 30
--- NOTE | 2017-11-15 13:45 | P.PN ---
Subjective Progress Note Date: 11/15/17 Status post right total knee arthroplasty Patient's discharge was held yesterday due to insurance reasons. Patient is still medically stable for discharge. She has had slight increase in her liver numbers AST 151 ALT 226 and alk phos 202. This is likely medication related due to her statin and the Bowie. Statin discontinued during this admission. Bowie at discharge is scheduled only 1 pill every 6 hours as needed instead of 2 pills. Patient denies any abdominal pain. She has a history of a cholecystectomy. Denies any nausea or vomiting. No hepatitis history. And the ports having a bowel movement Objective - Vital Signs Vital signs: Vital Signs Temp 98.5 F 11/15/17 07:00 Pulse 101 H 11/15/17 07:00 Resp 16 11/15/17 07:00 BP 129/77 11/15/17 07:00 Pulse Ox 92 L 11/15/17 07:00 Intake & Output 11/14/17 11/15/17 11/15/17 18:59 06:59 18:59 Intake Total 1320 960 360 Balance 1320 960 360 Intake: Intake, IV Titration 120 Amount Lactated Ringers 1,000 ml 120 @ 100 mls/hr IV .Q10H LISANDRA Rx#:[id number] Oral 1200 960 360 Other: Voiding Method Toilet # Voids 1 4 - Exam Head normocephalic Neck supple Lungs clear to auscultation bilaterally no wheezing or crackles Heart regular rate and rhythm S1-S2, no rub or gallop Abdomen is soft nontender nondistended positive bowel sounds no hepatosplenomegaly Extremities no edema Neuro alert and orientated to 3 - Labs CBC & Chem 7: 11/14/17 06:43 11/15/17 06:37 Labs: Abnormal Lab Results - Last 24 Hours (Table) 11/14/17 11/14/17 11/15/17 Range/Units 17:19 21:03 06:37 Carbon Dioxide 31 H (22-30) mmol/L Glucose 103 H (74-99) mg/dL POC Glucose (mg/dL) 111 H 117 H (75-99) mg/dL AST 151 H (14-36) U/L ALT 226 H (9-52) U/L Alkaline Phosphatase 202 H (38-126) U/L Total Protein 5.6 L (6.3-8.2) g/dL Albumin 3.1 L (3.5-5.0) g/dL 11/15/17 11/15/17 Range/Units 07:08 11:18 Carbon Dioxide (22-30) mmol/L Glucose (74-99) mg/dL POC Glucose (mg/dL) 108 H 117 H (75-99) mg/dL AST (14-36) U/L ALT (9-52) U/L Alkaline Phosphatase (38-126) U/L Total Protein (6.3-8.2) g/dL Albumin (3.5-5.0) g/dL Assessment and Plan Assessment: 1. Osteoarthritis of the right knee: Status post right total knee arthroplasty. Continue pain medications per orthopedic protocol. Continue aspirin twice a day for DVT prophylaxis 2. Obstructive sleep apnea she will bring CPAP from home 3. History of bipolar and schizophrenia: Resume psychiatric meds 4. Diabetes mellitus type 2: Resume metformin. Add sliding scale coverage. 5. Hyperlipidemia 6. ADHD okay for patient to bring Adderall from home 7. COPD history continue the albuterol as needed. Stable and no evidence of exacerbation. Former smoker quit several years ago 8. Hypothyroidism continue Synthroid 9. Acute blood loss anemia expected after surgery. Hemoglobin 9.7. Start ferrous sulfate 325 mg twice a day. Check CBC in 1 week 10. Elevated LFTs likely related to Lipitor and Bowie. Lipitor discontinued. No abdominal pain. Status post cholecystectomy. And will check LFTs in 1 week GI prophylaxis Pepcid and DVT prophylaxis Lovenox Patient is medically stable for discharge. We'll have Dr. Colbert to follow at [facility]. Recommend checking CBC and LFTs in 1 week I performed an examination of the patient and discussed their management with the physician Hydroelectric Component Machinist. I have reviewed the Physician Hydroelectric Component Machinist's notes and agree with the documented findings and plan of care
[2017-11-17] MEDS ORDERED: ERGOCALCIFEROL 50,000 UNIT CAP PO SCH (12:00)
== END 2017-11-15 14:25 | DRG 470 ==
LOC: 2ORMAIN 08:14 → 3SUR 11:48
PROVIDERS: ADMIT Orthopaedic Surgery; ATTEND Orthopaedic Surgery
PROC: 0SRC0J9 Replacement of Right Knee Joint with Synthetic Substitute, Cemented, Open Approach (ICD-10-PCS; principal; 2017-11-11 10:15)
DX: M17.11 Unilateral primary osteoarthritis, right knee (principal); D62 Acute posthemorrhagic anemia; F03.90 Unspecified dementia, unspecified severity, without behavioral disturbance, psychotic disturbance, mood disturbance, and anxiety; E03.9 Hypothyroidism, unspecified; E11.9 Type 2 diabetes mellitus without complications; E78.5 Hyperlipidemia, unspecified; F25.9 Schizoaffective disorder, unspecified; F41.0 Panic disorder [episodic paroxysmal anxiety]; F60.3 Borderline personality disorder; F90.9 Attention-deficit hyperactivity disorder, unspecified type; G47.33 Obstructive sleep apnea (adult) (pediatric); I10 Essential (primary) hypertension; J43.9 Emphysema, unspecified; K21.9 Gastro-esophageal reflux disease without esophagitis; Z79.899 Other long term (current) drug therapy; Z87.891 Personal history of nicotine dependence; Z90.49 Acquired absence of other specified parts of digestive tract; Z90.710 Acquired absence of both cervix and uterus; Z96.652 Presence of left artificial knee joint; Z88.5 Allergy status to narcotic agent; Z88.8 Allergy status to other drugs, medicaments and biological substances; Z79.84 Long term (current) use of oral hypoglycemic drugs; Z79.891 Long term (current) use of opiate analgesic
CPT/HCPCS: 80053; 83036; 85025; 88300; 94640; 94760

== ENCOUNTER 2017-12-02 22:27 | Inpatient (IN) | payer MEDICARE ==
--- NOTE | 2017-12-02 22:49 | ED ---
Fall HPI - General Chief Complaint: Fall Stated Complaint: Fall-Weakness Time Seen by Provider: 12/02/17 22:31 Source: patient, EMS Mode of arrival: EMS - History of Present Illness Initial Comments: This patient is a 62-year-old woman who presents to be evaluated after she had a fall tonight. The patient had right TKA performed on November 11, and states she had been doing fairly well with rehab until this morning, when she states that she believes she turned wrong and fell landing on her right knee. She states that she seemed to be okay though after that however tonight she was getting up to use the bathroom and felt like her knee buckled and she fell again. She states she struck the anterior aspect of the right knee, and then went to her side and struck her right shoulder. She did not hit her head. She does not have headache or neck pain. She is not having any neurologic symptoms. She did not have chest pain, palpitations or syncope, dyspnea diaphoresis or other symptoms. She declines analgesic at initial history and physical. MD Complaint: fall -: hour(s) Fall From: standing When Fall Occurred: 1-3 hours [address] MEDICINE NURSE PRACTITIONER Place Fall Occurred: home Loss of Consciousness: none Prolonged Down Time?: no Symptoms Prior to Fall: none Location - Extremities: Right: Shoulder, Knee Severity: moderate Quality: sharp Context: tripped/slipped - Related Data Home Medications Medication Instructions Recorded Confirmed Albuterol Inhaler [Ventolin Hfa 2 puff INHALATION RT-Q6H PRN 10/17/15 12/02/17 Inhaler] DULoxetine HCL [Cymbalta] 120 mg PO QAM 10/17/15 12/02/17 Donepezil HCl [Aricept] 10 mg PO HS 10/17/15 12/02/17 Gabapentin [Neurontin] 400 mg PO QID 10/17/15 12/02/17 Ibandronate Sodium [Boniva] 150 mg PO Q30D 10/17/15 12/02/17 Loratadine [Claritin] 10 mg PO HS 10/17/15 12/02/17 Nitroglycerin Sl Tabs [Nitrostat] 0.4 mg SUBLINGUAL Q5M PRN 10/17/15 12/02/17 Pantoprazole Sodium 40 mg PO QAM 10/17/15 12/02/17 QUEtiapine XR [SEROquel XR] 150 mg PO W/LUNCH 10/17/15 12/02/17 Sucralfate [Carafate] 1 gm PO BID 10/17/15 12/02/17 metFORMIN HCL [Glucophage] 850 mg PO TID 10/17/15 12/02/17 Albuterol Nebulized [Ventolin 2.5 mg INHALATION RT-TID PRN 10/31/15 12/02/17 Nebulized] Levothyroxine Sodium [Synthroid] 75 mcg PO DAILY 01/07/17 12/02/17 QUEtiapine XR [SEROquel XR] 150 mg PO HS 01/07/17 12/02/17 QUEtiapine XR [SEROquel XR] 150 mg PO W/SUPPER 01/07/17 12/02/17 Bismuth Subsalicylate 262 mg PO BID PRN 10/31/17 12/02/17 [Pepto-Bismol] SUMAtriptan SUCCINATE [Imitrex] 100 mg PO DAILY PRN 10/31/17 12/02/17 lamoTRIgine [LaMICtal] 25 mg PO HS 10/31/17 12/02/17 Atorvastatin [Lipitor] 40 mg PO HS 12/02/17 12/02/17 Cyclobenzaprine [Flexeril] 10 mg PO BID 12/02/17 12/02/17 Ergocalciferol [Vitamin D2] 50,000 unit PO [place]ED[place]E 12/02/17 12/02/17 Ferrous Sulfate [Iron (65 MG 325 mg PO DAILY 12/02/17 12/02/17 Elemental)] Ibuprofen [Motrin] 800 mg PO TID PRN 12/02/17 12/02/17 Pramipexole Di-HCl [Mirapex] 0.5 mg PO HS 12/02/17 12/02/17 cloNIDine HCL [Catapres] 0.1 mg PO HS 12/02/17 12/02/17 Previous Rx's Medication Instructions Recorded Dextroamphetamine/Amphetamine 30 mg PO DAILY #30 tablet 11/14/17 [Adderall] Allergies Allergy/AdvReac Type Severity Reaction Status Date / Time adhesive tape Allergy Blisters Verified 12/02/17 23:30 citalopram hydrobromide Allergy Itching,jenna Verified 12/02/17 23:30 [From Celexa] h codeine Allergy Nausea & Verified 12/02/17 23:30 Vomiting hydrocodone bitartrate Allergy Nausea & Verified 12/02/17 23:30 [From Vicodin] Vomiting pentazocine HCl Allergy "loss of Verified 12/02/17 23:30 [From [place]acen] time/memory" surgical glue AdvReac Unknown Uncoded 11/11/17 08:50 Review of Systems ROS Statement: Those systems with pertinent positive or pertinent negative responses have been documented in the HPI. ROS Other: All systems not noted in ROS Statement are negative. Constitutional: Denies: fever, chills, weakness Eyes: Denies: vision change Respiratory: Denies: cough, dyspnea Cardiovascular: Denies: chest pain, palpitations, orthopnea, edema, syncope Gastrointestinal: Denies: abdominal pain, vomiting, diarrhea Genitourinary: Denies: dysuria, hematuria Musculoskeletal: Reports: as per HPI, arthralgia. Denies: back pain Skin: Denies: rash Neurological: Denies: headache, weakness, numbness, paresthesias Hematological/Lymphatic: Denies: easy bleeding Past Medical History Past Medical History: Chest Pain / Angina, COPD, Diabetes Mellitus, Hyperlipidemia, Osteoarthritis (OA), Sleep Apnea/CPAP/BIPAP, Thyroid Disorder Additional Past Medical History / Comment(s): migraine headaches, colitis, 3 bulging desk bulging, rupture disks in lower back, using walker History of Any Multi-Drug Resistant Organisms: MRSA Date of last positivie culture/infection: 05/09/10 MDRO Source:: rt knee Past Surgical History: Appendectomy, Cholecystectomy, Hysterectomy, Joint Replacement, Orthopedic Surgery, Tonsillectomy Additional Past Surgical History / Comment(s): danial carpal tunnel, TOTAL LEFT KNEE 10/31/15 Past Anesthesia/Blood Transfusion Reactions: No Reported Reaction Past Psychological History: Anxiety, Bipolar, Depression, Panic Disorder Smoking Status: Former smoker Past Alcohol Use History: None Reported Past Drug Use History: None Reported - Past Family History Mother Family Medical History: No Reported History General Exam Limitations: no limitations General appearance: alert, in no apparent distress, obese Head exam: Present: atraumatic, normocephalic Eye exam: Present: normal appearance. Absent: scleral icterus, conjunctival injection ENT exam: Present: mucous membranes dry Neck exam: Present: normal inspection, full ROM. Absent: tenderness Respiratory exam: Present: normal lung sounds bilaterally. Absent: respiratory distress, wheezes, rales, rhonchi, stridor, chest wall tenderness Cardiovascular Exam: Present: regular rate, normal rhythm, normal heart sounds. Absent: systolic murmur, diastolic murmur, rubs, gallop GI/Abdominal exam: Present: soft. Absent: distended, tenderness, guarding, rebound, mass Extremities exam: Present: normal inspection, tenderness (Anterior aspect of the right knee from the distal patella to the proximal tibial plateau), normal capillary refill, other (Patient's surgical incision over the right knee is clean dry and intact. No erythema warmth or drainage.). Absent: pedal edema, calf tenderness Back exam: Present: normal inspection. Absent: CVA tenderness (R), CVA tenderness (L), vertebral tenderness Neurological exam: Present: alert, oriented X3. Absent: motor sensory deficit Skin exam: Present: warm, dry, intact, normal color. Absent: rash Course Vital Signs 12/02/17 12/03/17 22:29 01:50 Temperature 98.2 F Pulse Rate 94 107 H Respiratory 18 20 Rate Blood Pressure 172/77 155/63 O2 Sat by Pulse 94 L 95 Oximetry Medical Decision Making - Lab Data Result diagrams: 12/02/17 23:45 12/02/17 23:45 Lab Results 12/02/17 12/02/17 12/02/17 Range/Units 23:45 23:45 23:45 WBC 8.1 (3.8-10.6) k/uL RBC 4.78 (3.80-5.40) m/uL Hgb 11.4 (11.4-16.0) gm/dL Hct 38.2 (34.0-46.0) % MCV 80.0 (80.0-100.0) fL MCH 23.9 L (25.0-35.0) pg MCHC 29.9 L (31.0-37.0) g/dL RDW 16.3 H (11.5-15.5) % Plt Count 385 (150-450) k/uL Neutrophils % 73 % Lymphocytes % 13 % Monocytes % 8 % Eosinophils % 4 % Basophils % 1 % Neutrophils # 5.9 (1.3-7.7) k/uL Lymphocytes # 1.1 (1.0-4.8) k/uL Monocytes # 0.6 (0-1.0) k/uL Eosinophils # 0.4 (0-0.7) k/uL Basophils # 0.1 (0-0.2) k/uL Hypochromasia Marked Anisocytosis Slight PT (9.0-12.0) sec INR (<1.2) APTT (22.0-30.0) sec Sodium 141 (137-145) mmol/L Potassium 4.3 (3.5-5.1) mmol/L Chloride 102 (98-107) mmol/L Carbon Dioxide 26 (22-30) mmol/L Anion Gap 13 mmol/L BUN 19 H (7-17) mg/dL Creatinine 0.80 (0.52-1.04) mg/dL Est GFR (CKD-EPI)AfAm >90 (>60 ml/min/1.73 sqM) Est GFR (CKD-EPI)NonAf 80 (>60 ml/min/1.73 sqM) Glucose 108 H (74-99) mg/dL Plasma Lactic Acid Baldo 2.7 H* (0.7-2.0) mmol/L Calcium 9.8 (8.4-10.2) mg/dL Magnesium 1.7 (1.6-2.3) mg/dL Total Bilirubin 0.3 (0.2-1.3) mg/dL AST 20 (14-36) U/L ALT 26 (9-52) U/L Alkaline Phosphatase 116 (38-126) U/L Troponin I (0.000-0.034) ng/mL Total Protein 6.6 (6.3-8.2) g/dL Albumin 3.9 (3.5-5.0) g/dL Urine Color Urine Appearance (Clear) Urine pH (5.0-8.0) Ur Specific [place] (1.001-1.035) Urine Protein (Negative) Urine Glucose (UA) (Negative) Urine Ketones (Negative) Urine Blood (Negative) Urine Nitrite (Negative) Urine Bilirubin (Negative) Urine Urobilinogen (<2.0) mg/dL Ur Leukocyte Esterase (Negative) Urine RBC (0-5) /hpf Urine WBC (0-5) /hpf Ur Squamous Epith Cells (0-4) /hpf Urine Bacteria (None) /hpf Hyaline Casts (0-2) /lpf Urine Mucus (None) /hpf 12/02/17 12/02/17 12/03/17 Range/Units 23:45 23:45 01:47 WBC (3.8-10.6) k/uL RBC (3.80-5.40) m/uL Hgb (11.4-16.0) gm/dL Hct (34.0-46.0) % MCV (80.0-100.0) fL MCH (25.0-35.0) pg MCHC (31.0-37.0) g/dL RDW (11.5-15.5) % Plt Count (150-450) k/uL Neutrophils % % Lymphocytes % % Monocytes % % Eosinophils % % Basophils % % Neutrophils # (1.3-7.7) k/uL Lymphocytes # (1.0-4.8) k/uL Monocytes # (0-1.0) k/uL Eosinophils # (0-0.7) k/uL Basophils # (0-0.2) k/uL Hypochromasia Anisocytosis PT 10.0 (9.0-12.0) sec INR 1.0 (<1.2) APTT 21.5 L (22.0-30.0) sec Sodium (137-145) mmol/L Potassium (3.5-5.1) mmol/L Chloride (98-107) mmol/L Carbon Dioxide (22-30) mmol/L Anion Gap mmol/L BUN (7-17) mg/dL Creatinine (0.52-1.04) mg/dL Est GFR (CKD-EPI)AfAm (>60 ml/min/1.73 sqM) Est GFR (CKD-EPI)NonAf (>60 ml/min/1.73 sqM) Glucose (74-99) mg/dL Plasma Lactic Acid Baldo (0.7-2.0) mmol/L Calcium (8.4-10.2) mg/dL Magnesium (1.6-2.3) mg/dL Total Bilirubin (0.2-1.3) mg/dL AST (14-36) U/L ALT (9-52) U/L Alkaline Phosphatase (38-126) U/L Troponin I <0.012 (0.000-0.034) ng/mL Total Protein (6.3-8.2) g/dL Albumin (3.5-5.0) g/dL Urine Color Yellow Urine Appearance Clear (Clear) Urine pH 5.5 (5.0-8.0) Ur Specific [place] 1.021 (1.001-1.035) Urine Protein Trace H (Negative) Urine Glucose (UA) Negative (Negative) Urine Ketones Negative (Negative) Urine Blood Negative (Negative) Urine Nitrite Negative (Negative) Urine Bilirubin Negative (Negative) Urine Urobilinogen <2.0 (<2.0) mg/dL Ur Leukocyte Esterase Moderate H (Negative) Urine RBC <1 (0-5) /hpf Urine WBC 16 H (0-5) /hpf Ur Squamous Epith Cells 5 H (0-4) /hpf Urine Bacteria Rare H (None) /hpf Hyaline Casts 3 H (0-2) /lpf Urine Mucus Occasional H (None) /hpf - EKG Data -: EKG Interpreted by Ga EKG shows normal: sinus rhythm, axis (Normal), intervals (Normal), QRS complexes (Low-voltage QRS complex), ST-T waves (Normal) Rate: normal (Rate approximately 89 bpm) Disposition Clinical Impression: Fall, Lactic acidosis, Urinary tract infection Disposition: ADMITTED IP TO THIS HOSP Condition: Fair Referrals: Luisa Jennings DO [Primary Care Provider] - 1-2 days
[2017-12-02] MEDS ORDERED: MORPHINE SULFATE/PF 10MG/10ML VL IV STA (23:36)
--- NOTE | 2017-12-02 23:48 | XR ---
EXAMINATION TYPE: XR chest 1V portable DATE OF EXAM: 12/02/2017 COMPARISON: 11/04/2015 HISTORY: Weakness TECHNIQUE: Single frontal view of the chest is obtained. FINDINGS: Heart and mediastinum are normal. Lungs are clear. Costophrenic angles are clear. Bony tho rax appears intact. IMPRESSION: Normal chest. No change.
--- NOTE | 2017-12-02 23:50 | XR ---
EXAMINATION TYPE: XR shoulder complete RT DATE OF EXAM: 12/02/2017 COMPARISON: NONE HISTORY: Weakness TECHNIQUE: 4 views FINDINGS: I see no fracture nor dislocation. Joint spaces are normal. There are small sclerotic areas in the glenoid that could be bone islands. There are no pathologic soft tissue calcifications. IMPRESSION: Possible bone islands in the glenoid. No fracture seen.
--- NOTE | 2017-12-02 23:51 | XR ---
EXAMINATION TYPE: XR knee complete RT DATE OF EXAM: 12/02/2017 COMPARISON: NONE HISTORY: Weakness TECHNIQUE: 3 views FINDINGS: I see no fracture nor dislocation. There is a right knee prosthesis. Components appear in a natomic position. I see no definite joint effusion. There is a rounded 8 mm calcification above the p atella. 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 No fracture seen .
[2017-12-02 23:57] LABS: Anisocytosis Slight; Basophils # (A) 0.1 k/uL (0-0.2); Basophils % (A) 1 %; Eosinophils # (A) 0.4 k/uL (0-0.7); Eosinophils % (A) 4 %; HCT 38.2 % (34.0-46.0); HGB 11.4 gm/dL (11.4-16.0); Hypochromasia Marked; Lymphocytes # (A) 1.1 k/uL (1.0-4.8); Lymphocytes % (A) 13 %; MCH 23.9 pg (25.0-35.0); MCHC 29.9 g/dL (31.0-37.0); Mean Platelet Volume 7.1; Monocytes # (A) 0.6 k/uL (0-1.0); Monocytes % (A) 8 %; Neutrophils # (A) 5.9 k/uL (1.3-7.7); Neutrophils % (A) 73 %; Platelet Count 385 k/uL (150-450); RBC 4.78 m/uL (3.80-5.40); RDW 16.3 % (11.5-15.5); WBC 8.1 k/uL (3.8-10.6)
[2017-12-03 00:07] LABS: ALT 26 U/L (9-52); AST 20 U/L (14-36); Albumin 3.9 g/dL (3.5-5.0); Alkaline Phosphatase 116 U/L (38-126); Anion Gap 13 mmol/L; Blood Urea Nitrogen 19 mg/dL (7-17); Calcium 9.8 mg/dL (8.4-10.2); Carbon Dioxide 26 mmol/L (22-30); Chloride 102 mmol/L (98-107); Glucose 108 mg/dL (74-99); Magnesium 1.7 mg/dL (1.6-2.3); Potassium 4.3 mmol/L (3.5-5.1); Sodium 141 mmol/L (137-145); Total Bilirubin 0.3 mg/dL (0.2-1.3); Total Protein 6.6 g/dL (6.3-8.2)
[2017-12-03 00:33] LABS: Partial Thromboplastin Time 21.5 sec (22.0-30.0)
[2017-12-03] MEDS ORDERED: GABAPENTIN 400 MG CAP PO STA (00:36)
[2017-12-03] MEDS ORDERED: KETOROLAC 30 MG/ML 1 ML VIAL IVP STA (00:36)
[2017-12-03] MEDS ORDERED: ONDANSETRON 4 MG/2 ML VIAL IVP STA (00:47)
[2017-12-03] MEDS ORDERED: MORPHINE SULFATE/PF 10MG/10ML VL IV STA (00:54)
[2017-12-03] MEDS ORDERED: SODIUM CHLORIDE 0.9% 1,000 ML IV ONE (00:55)
[2017-12-03] MEDS ORDERED: MORPHINE SULFATE/PF 10MG/10ML VL ONE (00:57)
[2017-12-03] MEDS ORDERED: HYDROcodone/APAP 10-325MG 1 EACH TAB PO ONE (01:54)
[2017-12-03 02:16] LABS: Appearance,Urine Clear (Clear); Bacteria,Urine Rare /hpf; Bilirubin,Urine Negative (Negative); Blood,Urine Negative (Negative); Color,Urine Yellow; Glucose,Urine (UA) Negative (Negative); Hyaline Casts,Urine 3 /lpf (0-2); Ketones,Urine Negative (Negative); Leukocyte Esterase,Urine Moderate (Negative); Mucus,Urine Occasional /hpf; Nitrite,Urine Negative (Negative); PH, Urine 5.5 (5.0-8.0); Protein,Urine Trace (Negative); RBC,Urine <1 /hpf (0-5); Specific Gravity,Urine 1.021 (1.001-1.035); Squamous Epithelial Cell,Urine 5 /hpf (0-4); Urobilinogen,Urine <2.0 mg/dL (<2.0); WBC,Urine 16 /hpf (0-5)
[2017-12-03] MEDS ORDERED: NALOXONE 0.4 MG/ML 1 ML VIAL IV PRN (03:00)
[2017-12-03] MEDS ORDERED: ACETAMINOPHEN TAB 325 MG TAB PO PRN (03:00)
[2017-12-03] MEDS ORDERED: DOCUSATE 100 MG CAP PO PRN (03:00)
[2017-12-03] MEDS ORDERED: ONDANSETRON 4 MG/2 ML VIAL IVP PRN (03:00)
[2017-12-03] MEDS ORDERED: MAG HYDROX/AL HYDROX/SIMETH 30 ML CUP PO PRN (03:00)
[2017-12-03] MEDS ORDERED: BISMUTH SUBSALICYLATE 4,192 MG/240 ML BOTTLE PO PRN (03:03)
[2017-12-03] MEDS ORDERED: ALBUTEROL NEBULIZED 2.5 MG/3 ML INHALATION PRN (03:03)
[2017-12-03] MEDS ORDERED: SUMAtriptan SUCCINATE 50 MG TAB PO PRN (03:03)
[2017-12-03] MEDS ORDERED: NITROGLYCERIN SL TABS 0.4 MG TAB SUBLINGUAL PRN (03:03)
[2017-12-03 04:33] VITALS: BMI 47.6
[2017-12-03] MEDS: SODIUM CHLORIDE 0.9% 1,000 ML IV SCH ×2 (04:47→13:23)
[2017-12-03] MEDS: LEVOTHYROXINE 75 MCG TAB PO SCH (07:27)
[2017-12-03] MEDS ORDERED: metFORMIN 850 MG TAB PO SCH (07:30)
[2017-12-03] MEDS ORDERED: FAMOTIDINE 20 MG TAB PO SCH (09:00)
[2017-12-03] MEDS ORDERED: NON-FORMULARY DRUG (Dextroamphetamine/Amphetamine [Adderall] 30 MG) PO SCH (09:00)
[2017-12-03] MEDS ORDERED: SULFAMETHOX-TMP 800-160MG 1 EACH TAB PO SCH (09:00)
[2017-12-03] MEDS ORDERED: MORPHINE SULFATE/PF 10MG/10ML VL IVP STA (09:02)
[2017-12-03] MEDS: HEPARIN SODIUM,PORCINE 5,000 UNIT/ML 1 ML VIAL SQ SCH ×3 (09:15→23:43)
[2017-12-03] MEDS: PANTOPRAZOLE 40 MG TABLET PO SCH (09:15)
[2017-12-03] MEDS: DULoxetine HCL 60 MG CAPSULE.DR PO SCH (09:16)
[2017-12-03] MEDS: CYCLOBENZAPRINE 10 MG TAB PO SCH ×2 (09:16→22:44)
[2017-12-03] MEDS: SUCRALFATE 1 GM TAB PO SCH ×2 (09:17→22:44)
[2017-12-03] MEDS: FERROUS SULFATE 325 MG TAB PO SCH (09:17)
[2017-12-03] MEDS: GABAPENTIN 400 MG CAP PO SCH ×4 (09:17→22:43)
[2017-12-03] MEDS ORDERED: IBUPROFEN 800 MG TAB PO PRN (09:18)
[2017-12-03] MEDS ORDERED: MORPHINE SULFATE/PF 10MG/10ML VL IVP PRN (09:20)
[2017-12-03] MEDS: HYDROcodone/APAP 5-325MG 1 EACH TAB PO PRN ×3 (09:39→17:07)
--- NOTE | 2017-12-03 09:55 | US ---
EXAMINATION TYPE: US venous doppler duplex LE RT DATE OF EXAM: 12/03/2017 9:45 AM COMPARISON: CLINICAL HISTORY: calf pain. Patient states she had right knee surgery on the November 11. Was taking a spirin but stopped. No swelling or redness. SIDE PERFORMED: Right TECHNIQUE: The lower extremity deep venous system is examined utilizing real time linear array sonog solange with graded compression, doppler sonography and color-flow sonography. VESSELS IMAGED: External Iliac Vein (EIV) Common Femoral Vein Deep Femoral Vein Greater Saphenous Vein * Femoral Vein Popliteal Vein Small Saphenous Vein * Proximal Calf Veins (* superficial vessels) Right Leg: Negative for DVT Grayscale, color doppler, spectral doppler imaging performed of the deep veins of the lower extremiti es. There is normal flow, compressibility, vascular waveforms. IMPRESSION: No evident deep venous thrombosis at or above the right knee.
[2017-12-03 11:15] LABS: Glucose,Whole Blood 108 mg/dL (75-99)
--- NOTE | 2017-12-03 12:46 | P.HPIM ---
History of Present Illness H&P Date: 12/03/17 Chief Complaint: Right knee pain This is a 62-year-old female with a known past medical history of recent right total knee arthroplasty on November [address] Herring. Also has a history of diabetes, COPD, hyperlipidemia, osteoporosis and arthritis, obstructive sleep apnea and hypothyroidism. Patient had been discharged from the hospital after her right total knee arthroplasty and had been at rehab. She was discharged a few days ago from rehab for her knee. She had been ambulating fine. However, on Saturday patient got up in the morning to to use the bathroom. She was able to use the restroom came out and her legs gave out. She landed on her knees on hard tile. Family member was able to help get her up. She was able to work with physical therapy later that day. And then she fell again Saturday evening landing on both knees. This time she was getting up in the middle the night to get to the bathroom and her legs gave out before she could get to the restroom. Patient reports no loss of consciousness no dizziness. No chest pain or shortness of breath. No heart palpitations. She denies any bowel movement changes or urinary symptoms. She reports feeling fine in that her legs are just giving out. She is in extreme pain in that right knee. X-ray was completed showing no evidence of fracture. 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 Right shoulder x-ray also completed showing possible bone islands in the glenoid. No fracture seen. Orthopedics have been consulted. Venous Doppler negative for DVT. She has been started on Bactrim for possible UTI in the emergency room. Urine cultures pending. Lactic acid elevated at 2.7 down to 2 after IV fluids. Metformin has been discontinued. Troponins are negative. EKG showing a normal sinus rhythm. Chest x-rays negative. Patient is currently on IV morphine as needed for pain control as well as [place]. Patient currently denies any urinary symptoms. There is no drainage or evidence of cellulitis at the right knee. The patient does have decreased mobility in that knee and decrease mobility in extending her right foot. Review of Systems Please Refer to HPI otherwise unremarkable Past Medical History Past Medical History: Chest Pain / Angina, COPD, Diabetes Mellitus, Hyperlipidemia, Osteoarthritis (OA), Sleep Apnea/CPAP/BIPAP, Thyroid Disorder Additional Past Medical History / Comment(s): migraine headaches, colitis, 3 bulging desk bulging, rupture disks in lower back, using walker History of Any Multi-Drug Resistant Organisms: MRSA Date of last positivie culture/infection: 05/09/10 MDRO Source:: rt knee Past Surgical History: Appendectomy, Cholecystectomy, Hysterectomy, Joint Replacement, Orthopedic Surgery, Tonsillectomy Additional Past Surgical History / Comment(s): danial carpal tunnel, TOTAL LEFT KNEE 10/31/15 Past Anesthesia/Blood Transfusion Reactions: No Reported Reaction Past Psychological History: Anxiety, Bipolar, Depression, Panic Disorder Additional Psychological History / Comment(s): psychosis, borderline personality disorder, Smoking Status: Former smoker Past Alcohol Use History: None Reported Additional Past Alcohol Use History / Comment(s): quit smoking 1994, smoked for 30 yrs-1-2 PPD Past Drug Use History: None Reported - Past Family History Mother Family Medical History: No Reported History Medications and Allergies Home Medications Medication Instructions Recorded Confirmed Type Albuterol Inhaler [Ventolin Hfa 2 puff INHALATION RT-Q6H PRN 10/17/15 12/02/17 History Inhaler] DULoxetine HCL [Cymbalta] 120 mg PO QAM 10/17/15 12/02/17 History Donepezil HCl [Aricept] 10 mg PO HS 10/17/15 12/02/17 History Gabapentin [Neurontin] 400 mg PO QID 10/17/15 12/02/17 History Ibandronate Sodium [Boniva] 150 mg PO Q30D 10/17/15 12/02/17 History Loratadine [Claritin] 10 mg PO HS 10/17/15 12/02/17 History Nitroglycerin Sl Tabs [Nitrostat] 0.4 mg SUBLINGUAL Q5M PRN 10/17/15 12/02/17 History Pantoprazole Sodium 40 mg PO QAM 10/17/15 12/02/17 History QUEtiapine XR [SEROquel XR] 150 mg PO W/LUNCH 10/17/15 12/02/17 History Sucralfate [Carafate] 1 gm PO BID 10/17/15 12/02/17 History metFORMIN HCL [Glucophage] 850 mg PO TID 10/17/15 12/02/17 History Albuterol Nebulized [Ventolin 2.5 mg INHALATION RT-TID PRN 10/31/15 12/02/17 History Nebulized] Levothyroxine Sodium [Synthroid] 75 mcg PO DAILY 01/07/17 12/02/17 History QUEtiapine XR [SEROquel XR] 150 mg PO HS 01/07/17 12/02/17 History QUEtiapine XR [SEROquel XR] 150 mg PO W/SUPPER 01/07/17 12/02/17 History Bismuth Subsalicylate 262 mg PO BID PRN 10/31/17 12/02/17 History [Pepto-Bismol] SUMAtriptan SUCCINATE [Imitrex] 100 mg PO DAILY PRN 10/31/17 12/02/17 History lamoTRIgine [LaMICtal] 25 mg PO HS 10/31/17 12/02/17 History Dextroamphetamine/Amphetamine 30 mg PO DAILY #30 tablet 11/14/17 12/02/17 Rx [Adderall] Atorvastatin [Lipitor] 40 mg PO HS 12/02/17 12/02/17 History Cyclobenzaprine [Flexeril] 10 mg PO BID 12/02/17 12/02/17 History Ergocalciferol [Vitamin D2] 50,000 unit PO BLEDSOE 12/02/17 12/02/17 History Ferrous Sulfate [Iron (65 MG 325 mg PO DAILY 12/02/17 12/02/17 History Elemental)] Ibuprofen [Motrin] 800 mg PO TID PRN 12/02/17 12/02/17 History Pramipexole Di-HCl [Mirapex] 0.5 mg PO HS 12/02/17 12/02/17 History cloNIDine HCL [Catapres] 0.1 mg PO HS 12/02/17 12/02/17 History Allergies Allergy/AdvReac Type Severity Reaction Status Date / Time adhesive tape Allergy Blisters Verified 12/02/17 23:30 citalopram hydrobromide Allergy Itching,jenna Verified 12/02/17 23:30 [From Celexa] h codeine Allergy Nausea & Verified 12/02/17 23:30 Vomiting hydrocodone bitartrate Allergy Nausea & Verified 12/02/17 23:30 [From Vicodin] Vomiting pentazocine HCl Allergy "loss of Verified 12/02/17 23:30 [From [place]] time/memory" surgical glue AdvReac Unknown Uncoded 11/11/17 08:50 Physical Exam Vitals: Vital Signs Temp Pulse Pulse Resp BP BP Pulse Ox 12/03/17 07:00 98.1 F 16 128/80 96 12/03/17 04:12 98.1 F 93 16 124/75 93 L 12/03/17 03:37 88 16 133/56 96 12/03/17 01:50 107 H 20 155/63 95 12/02/17 22:29 98.2 F 94 18 172/77 94 L Intake and Output 12/02/17 12/03/17 12/03/17 22:59 06:59 14:59 Intake Total 849 180 Output Total 100 Balance 749 180 Intake: Intake, IV Titration 309 Amount Sodium Chloride 0.9% 1, 309 000 ml @ 125 mls/hr IV . Q8H LISANDRA Rx#:[id number] Oral 540 180 Output: Urine 100 Other: # Voids 1 Weight 122.47 kg 122 kg Head normocephalic Neck supple Lungs clear to auscultation bilaterally no wheezing or crackles Heart regular rate and rhythm S1-S2, no rub or gallop Abdomen is soft nontender nondistended positive bowel sounds no hepatosplenomegaly Extremities right knee some swelling noted. Incision site clean dry and intact. Tenderness with palpation of the right knee. Decreased mobility in the right knee. +2 dorsalis pedis pulse. Patient has difficulty extending the right foot. Neuro alert and orientated to 3 Results CBC & Chem 7: 12/02/17 23:45 12/02/17 23:45 Labs: Abnormal Lab Results - Last 24 Hours (Table) 12/02/17 12/02/17 12/02/17 Range/Units 23:45 23:45 23:45 MCH 23.9 L (25.0-35.0) pg MCHC 29.9 L (31.0-37.0) g/dL RDW 16.3 H (11.5-15.5) % APTT (22.0-30.0) sec BUN 19 H (7-17) mg/dL Glucose 108 H (74-99) mg/dL POC Glucose (mg/dL) (75-99) mg/dL Plasma Lactic Acid Baldo 2.7 H* (0.7-2.0) mmol/L Urine Protein (Negative) Ur Leukocyte Esterase (Negative) Urine WBC (0-5) /hpf Ur Squamous Epith Cells (0-4) /hpf Urine Bacteria (None) /hpf Hyaline Casts (0-2) /lpf Urine Mucus (None) /hpf 12/02/17 12/03/17 12/03/17 Range/Units 23:45 01:47 11:10 MCH (25.0-35.0) pg MCHC (31.0-37.0) g/dL RDW (11.5-15.5) % APTT 21.5 L (22.0-30.0) sec BUN (7-17) mg/dL Glucose (74-99) mg/dL POC Glucose (mg/dL) 108 H (75-99) mg/dL Plasma Lactic Acid Baldo (0.7-2.0) mmol/L Urine Protein Trace H (Negative) Ur Leukocyte Esterase Moderate H (Negative) Urine WBC 16 H (0-5) /hpf Ur Squamous Epith Cells 5 H (0-4) /hpf Urine Bacteria Rare H (None) /hpf Hyaline Casts 3 H (0-2) /lpf Urine Mucus Occasional H (None) /hpf Thrombosis Risk Factor Assmnt - Choose All That Apply Each Factor Represents 1 point: Abnormal pulmonary function (COPD) Other Risk Factors: Yes Each Risk Factor Represents 2 Points: Age 61-74 years Thrombosis Risk Factor Assessment Total Risk Factor Score: 3 Thrombosis Risk Factor Assessment Level: Moderate Risk Assessment and Plan Assessment: 1. Intractable right knee pain with fall. Recent right total knee arthroplasty on November 11. Orthopedics have been consulted. Venous Doppler negative for DVT. Resume [place] for pain control. Also adding IV morphine. X- ray showed no evidence of fracture of the knee 2. UTI started on Bactrim in the emergency room. Check urine culture. 3. Elevated lactic acid present on admission improving with IV fluids. Possibly related to UTI. Metformin discontinued 4. Diabetes mellitus type 2: Metformin on hold add sliding scale coverage 5. History of COPD stable no evidence of exacerbation 6. Hyperlipidemia continue statin GI prophylaxis Pepcid and DVT prophylaxis subcu heparin Time with Patient: Greater than 30 (Greater than 50% of the total time spent in counseling and coordination of care.I performed an examination of the patient and discussed their management with the physician Sociology Teacher. I have reviewed the Physician Sociology Teacher's notes and agree with the documented findings and plan of care)
[2017-12-03] MEDS: INSULIN ASPART 100 UNIT/ML 1 ML 10 ML VIAL SQ SCH ×3 (13:23→22:45)
[2017-12-03] MEDS: QUEtiapine 50 MG TAB PO SCH ×3 (13:25→22:44)
--- NOTE | 2017-12-03 15:08 | P.CNOR ---
History of Present Illness - [facility] Consult date: 12/03/17 Consult reason: joint pain History of present illness: This is a 62-year-old female who was brought to [facility] after falling at home. Patient had a recent right total knee arthroplasty done by Dr. Herring on 11/11/2017. Patient was discharged from the hospital to a rehab facility for 2 weeks. I personally saw the patient for first postop last week, she was doing very well. She was discharged from her rehab on 11/30/2016 has been home since then. Patient states both falls occurred while getting up at night going to the bathroom. She states that both legs gave out on her when she fell. She landed on the right knee and also onto the right shoulder. Upon arrival to the hospital, imaging and lab tests were done. Labs revealed a likely UTI infection, she was began on antibiotics. X-rays of both the right shoulder and right knee were negative for any acute fractures or dislocations. Patient received a few doses of IV pain medication with minimal improvement, she was admitted for pain control and further evaluation. She was admitted under internal medicine, orthopedic services in consult. Patient is evaluated today at the bedside, she is lying supine position. She complains of generalized pain surrounding the right knee. She is very difficult time extending or flexing the knee. She denies any pain involving the left lower extremity, left upper extremity, cervical, thoracic or lumbar pain. She notes pain in the right shoulder. She denies any headaches, lightheadedness, chest pain, shortness of breath, fever chills. Review of Systems Constitutional: Reports as per HPI Past Medical History Past Medical History: Chest Pain / Angina, COPD, Diabetes Mellitus, Hyperlipidemia, Osteoarthritis (OA), Sleep Apnea/CPAP/BIPAP, Thyroid Disorder Additional Past Medical History / Comment(s): migraine headaches, colitis, 3 bulging desk bulging, rupture disks in lower back, using walker History of Any Multi-Drug Resistant Organisms: MRSA Year Discovered:: 05/09/10 MDRO Source:: rt knee Past Surgical History: Appendectomy, Cholecystectomy, Hysterectomy, Joint Replacement, Orthopedic Surgery, Tonsillectomy Additional Past Surgical History / Comment(s): danial carpal tunnel, TOTAL LEFT KNEE 10/31/15 Past Anesthesia/Blood Transfusion Reactions: No Reported Reaction Past Psychological History: Anxiety, Bipolar, Depression, Panic Disorder Additional Psychological History / Comment(s): psychosis, borderline personality disorder, Smoking Status: Former smoker Past Alcohol Use History: None Reported Additional Past Alcohol Use History / Comment(s): quit smoking 1994, smoked for 30 yrs-1-2 PPD Past Drug Use History: None Reported - Past Family History Mother Family Medical History: No Reported History Medications and Allergies Home Medications Medication Instructions Recorded Confirmed Type Albuterol Inhaler [Ventolin Hfa 2 puff INHALATION RT-Q6H PRN 10/17/15 12/02/17 History Inhaler] DULoxetine HCL [Cymbalta] 120 mg PO QAM 10/17/15 12/02/17 History Donepezil HCl [Aricept] 10 mg PO HS 10/17/15 12/02/17 History Gabapentin [Neurontin] 400 mg PO QID 10/17/15 12/02/17 History Ibandronate Sodium [Boniva] 150 mg PO Q30D 10/17/15 12/02/17 History Loratadine [Claritin] 10 mg PO HS 10/17/15 12/02/17 History Nitroglycerin Sl Tabs [Nitrostat] 0.4 mg SUBLINGUAL Q5M PRN 10/17/15 12/02/17 History Pantoprazole Sodium 40 mg PO QAM 10/17/15 12/02/17 History QUEtiapine XR [SEROquel XR] 150 mg PO W/LUNCH 10/17/15 12/02/17 History Sucralfate [Carafate] 1 gm PO BID 10/17/15 12/02/17 History metFORMIN HCL [Glucophage] 850 mg PO TID 10/17/15 12/02/17 History Albuterol Nebulized [Ventolin 2.5 mg INHALATION RT-TID PRN 10/31/15 12/02/17 History Nebulized] Levothyroxine Sodium [Synthroid] 75 mcg PO DAILY 01/07/17 12/02/17 History QUEtiapine XR [SEROquel XR] 150 mg PO HS 01/07/17 12/02/17 History QUEtiapine XR [SEROquel XR] 150 mg PO W/SUPPER 01/07/17 12/02/17 History Bismuth Subsalicylate 262 mg PO BID PRN 10/31/17 12/02/17 History [Pepto-Bismol] SUMAtriptan SUCCINATE [Imitrex] 100 mg PO DAILY PRN 10/31/17 12/02/17 History lamoTRIgine [LaMICtal] 25 mg PO HS 10/31/17 12/02/17 History Dextroamphetamine/Amphetamine 30 mg PO DAILY #30 tablet 11/14/17 12/02/17 Rx [Adderall] Atorvastatin [Lipitor] 40 mg PO HS 12/02/17 12/02/17 History Cyclobenzaprine [Flexeril] 10 mg PO BID 12/02/17 12/02/17 History Ergocalciferol [Vitamin D2] 50,000 unit PO BLEDSOE 12/02/17 12/02/17 History Ferrous Sulfate [Iron (65 MG 325 mg PO DAILY 12/02/17 12/02/17 History Elemental)] Ibuprofen [Motrin] 800 mg PO TID PRN 12/02/17 12/02/17 History Pramipexole Di-HCl [Mirapex] 0.5 mg PO HS 12/02/17 12/02/17 History cloNIDine HCL [Catapres] 0.1 mg PO HS 12/02/17 12/02/17 History Allergies Allergy/AdvReac Type Severity Reaction Status Date / Time adhesive tape Allergy Blisters Verified 12/02/17 23:30 citalopram hydrobromide Allergy Itching,jenna Verified 12/02/17 23:30 [From Celexa] h codeine Allergy Nausea & Verified 12/02/17 23:30 Vomiting hydrocodone bitartrate Allergy Nausea & Verified 12/02/17 23:30 [From Vicodin] Vomiting pentazocine HCl Allergy "loss of Verified 12/02/17 23:30 [From [place]] time/memory" surgical glue AdvReac Unknown Uncoded 11/11/17 08:50 Physical Examination Right lower extremity: Incision is well-healed, there are a few scabs noted. No drainage or erythema noted. Mild effusion present around the right knee Pain is reproduced with palpation around the right knee, no specific area. Knee is in full extension, she is a very difficult time flexing it. She is a very difficult time lifting light off the bed at this time Logroll maneuver reproduces no pain involving the right hip Plantar flexion, dorsiflexion, EHL, FHL are intact. Skin is warm to touch, sensory exam to light touch throughout the extremities intact. Dorsal pedis pulses 2+. Results - Labs Labs: Abnormal Lab Results - Last 24 Hours (Table) 12/02/17 12/02/17 12/02/17 Range/Units 23:45 23:45 23:45 MCH 23.9 L (25.0-35.0) pg MCHC 29.9 L (31.0-37.0) g/dL RDW 16.3 H (11.5-15.5) % APTT (22.0-30.0) sec BUN 19 H (7-17) mg/dL Glucose 108 H (74-99) mg/dL POC Glucose (mg/dL) (75-99) mg/dL Plasma Lactic Acid Baldo 2.7 H* (0.7-2.0) mmol/L Urine Protein (Negative) Ur Leukocyte Esterase (Negative) Urine WBC (0-5) /hpf Ur Squamous Epith Cells (0-4) /hpf Urine Bacteria (None) /hpf Hyaline Casts (0-2) /lpf Urine Mucus (None) /hpf 12/02/17 12/03/17 12/03/17 Range/Units 23:45 01:47 11:10 MCH (25.0-35.0) pg MCHC (31.0-37.0) g/dL RDW (11.5-15.5) % APTT 21.5 L (22.0-30.0) sec BUN (7-17) mg/dL Glucose (74-99) mg/dL POC Glucose (mg/dL) 108 H (75-99) mg/dL Plasma Lactic Acid Baldo (0.7-2.0) mmol/L Urine Protein Trace H (Negative) Ur Leukocyte Esterase Moderate H (Negative) Urine WBC 16 H (0-5) /hpf Ur Squamous Epith Cells 5 H (0-4) /hpf Urine Bacteria Rare H (None) /hpf Hyaline Casts 3 H (0-2) /lpf Urine Mucus Occasional H (None) /hpf H & H 12/02/17 Range/Units 23:45 Hgb 11.4 (11.4-16.0) gm/dL Hct 38.2 (34.0-46.0) % Coagulation 12/02/17 Range/Units 23:45 INR 1.0 (<1.2) Result Diagrams: 12/02/17 23:45 12/02/17 23:45 - Diagnostic results Shoulder x-ray: report reviewed, image reviewed Knee x-ray: report reviewed, image reviewed Assessment and Plan Plan: Imaging: Images of the right knee and right shoulder were reviewed, including reports. Images his right knee demonstrates stable total knee arthroplasty components, no obvious lucencies or other signs of loosening present. Images the right shoulder demonstrate no acute fractures or dislocations Assessment: 1. Right knee pain 2. Status post fall from standing 3. History of right total knee arthroplasty 11/11/2017 4. Right shoulder pain 5. Right shoulder osteoarthritis 6. History of right shoulder arthroscopy January 2017 Plan: I was able to discuss the case, including both physical exam findings and imaging studies with Dr. Herring. We would like to observe the patient overnight, continue with pain medication as needed. We'll attempt to get patient up with physical therapy for walker ambulation. Ice and elevate as needed. No orthopedic surgical intervention at this time Continue basic range of motion exercises with the right shoulder, we'll continue to evaluate in the outpatient setting if symptoms progress PT/OT evaluation Pain control GI and DVT prophylaxis per medical recommendations Further recommendations to follow Time with Patient: Less than 30
[2017-12-03] MEDS: cefTRIAXone IN SWFI 1,000 MG/10 ML SYRINGE IVP SCH (17:07)
[2017-12-03] MEDS ORDERED: QUETIAPINE 150 MG PO SCH ×2 (17:30→21:00)
[2017-12-03 17:55] LABS: Glucose,Whole Blood 113 mg/dL (75-99)
[2017-12-03 20:03] LABS: Hemoglobin A1C 5.9 % (4.0-6.0)
[2017-12-03 20:41] LABS: Glucose,Whole Blood 140 mg/dL (75-99)
[2017-12-03] MEDS ORDERED: ATORVASTATIN 40 MG TAB PO SCH (21:00)
[2017-12-03] MEDS: cloNIDine HCL 0.1 MG TAB PO SCH (22:43)
[2017-12-03] MEDS: PRAMIPEXOLE 0.5 MG TAB PO SCH (22:44)
[2017-12-03] MEDS: lamoTRIgine 25 MG TAB PO SCH (22:44)
[2017-12-03] MEDS: LORATADINE 10 MG TAB PO SCH (22:45)
[2017-12-03] MEDS: DONEPEZIL 10 MG TAB PO SCH (22:45)
[2017-12-04] MEDS: HYDROcodone/APAP 5-325MG 1 EACH TAB PO PRN ×6 (01:36→23:13)
[2017-12-04] MEDS: SODIUM CHLORIDE 0.9% 1,000 ML IV SCH ×4 (01:37→21:28)
[2017-12-04] MEDS: LEVOTHYROXINE 75 MCG TAB PO SCH (05:38)
[2017-12-04 07:11] LABS: Glucose,Whole Blood 121 mg/dL (75-99)
[2017-12-04] MEDS: INSULIN ASPART 100 UNIT/ML 1 ML 10 ML VIAL SQ SCH ×4 (07:26→21:31)
[2017-12-04 07:37] LABS: Basophils % (A) 1 %; Eosinophils # (A) 0.3 k/uL (0-0.7); Eosinophils % (A) 7 %; HCT 36.9 % (34.0-46.0); HGB 10.5 gm/dL (11.4-16.0); Hypochromasia Marked; Lymphocytes # (A) 1.2 k/uL (1.0-4.8); Lymphocytes % (A) 25 %; MCH 23.4 pg (25.0-35.0); MCHC 28.4 g/dL (31.0-37.0); MCV 82.4 fL (80.0-100.0); Mean Platelet Volume 7.2; Monocytes # (A) 0.4 k/uL (0-1.0); Monocytes % (A) 9 %; Neutrophils # (A) 2.6 k/uL (1.3-7.7); Neutrophils % (A) 55 %; Platelet Count 304 k/uL (150-450); RBC 4.48 m/uL (3.80-5.40); RDW 15.9 % (11.5-15.5); WBC 4.6 k/uL (3.8-10.6)
[2017-12-04 07:56] LABS: ALT 113 U/L (9-52); AST 66 U/L (14-36); Albumin 3.5 g/dL (3.5-5.0); Alkaline Phosphatase 153 U/L (38-126); Anion Gap 13 mmol/L; Blood Urea Nitrogen 15 mg/dL (7-17); Calcium 9.3 mg/dL (8.4-10.2); Carbon Dioxide 25 mmol/L (22-30); Chloride 105 mmol/L (98-107); Glucose 101 mg/dL (74-99); Potassium 4.2 mmol/L (3.5-5.1); Sodium 143 mmol/L (137-145); Total Bilirubin 0.3 mg/dL (0.2-1.3)
[2017-12-04] MEDS: cefTRIAXone IN SWFI 1,000 MG/10 ML SYRINGE IVP SCH (08:02)
[2017-12-04] MEDS: HEPARIN SODIUM,PORCINE 5,000 UNIT/ML 1 ML VIAL SQ SCH ×3 (08:02→23:14)
[2017-12-04] MEDS: CYCLOBENZAPRINE 10 MG TAB PO SCH ×2 (08:02→21:19)
[2017-12-04] MEDS: PANTOPRAZOLE 40 MG TABLET PO SCH (08:02)
[2017-12-04] MEDS: FERROUS SULFATE 325 MG TAB PO SCH (08:03)
[2017-12-04] MEDS: DULoxetine HCL 60 MG CAPSULE.DR PO SCH (08:03)
[2017-12-04] MEDS: GABAPENTIN 400 MG CAP PO SCH ×4 (08:03→23:14)
[2017-12-04] MEDS: SUCRALFATE 1 GM TAB PO SCH ×2 (08:03→21:19)
[2017-12-04 11:41] LABS: Glucose,Whole Blood 161 mg/dL (75-99)
[2017-12-04] MEDS ORDERED: methylPREDNISolone SOD SUCCI 125 MG/2 ML VIAL IV STA (11:59)
--- NOTE | 2017-12-04 12:14 | P.PN ---
Subjective Progress Note Date: 12/04/17 Principal diagnosis: Right knee pain, history of recent right total knee arthroplasty Patient seen today at bedside, Dr. Herring present to examine the patient also. Patient is able to extend and flex the foot and ankle better than she was yesterday. She still having significant difficulty with extension and flexion of the knee. She still notes pain throughout the knee. She admits to some tingling also noted in the anterior thigh on the right side, she denies any numbness or tingling involving the left lower extremity or bilateral upper extremities. Objective - Vital Signs Vital signs: Vital Signs Temp 98.5 F 12/04/17 07:00 Pulse 87 12/04/17 07:00 Resp 16 12/04/17 07:00 BP 149/85 12/04/17 07:00 Pulse Ox 97 12/04/17 07:00 Intake & Output 12/03/17 12/04/17 12/04/17 18:59 06:59 18:59 Intake Total 680 200 Balance 680 200 Intake: Oral 680 200 Other: Voiding Method Toilet # Voids 1 - Exam Right lower extremity: Incision over the anterior aspect knee is well-healed Significant areas of erythema or ecchymosis No palpable defect present along the medial aspect of the knee or in the quadriceps tendon insertion region Patient is difficulty initiating flexion and extension of the knee. While she sitting in chair, I was able to extend the knee fully, she then activated her quads muscle and was able to keep the knee in full extension. She was unable to flex the knee back down. Calf is soft, no tenderness with palpation Plantar flexion, dorsiflexion, EHL, FHL are intact. Dorsal pedis pulses 2+, sensory exam to light touch throughout the extremities intact. - Labs CBC & Chem 7: 12/04/17 07:08 12/04/17 07:08 Labs: Abnormal Lab Results - Last 24 Hours (Table) 12/03/17 12/03/17 12/04/17 Range/Units 17:12 20:12 07:01 Hgb (11.4-16.0) gm/dL MCH (25.0-35.0) pg MCHC (31.0-37.0) g/dL RDW (11.5-15.5) % Glucose (74-99) mg/dL POC Glucose (mg/dL) 113 H 140 H 121 H (75-99) mg/dL AST (14-36) U/L ALT (9-52) U/L Alkaline Phosphatase (38-126) U/L Total Protein (6.3-8.2) g/dL 12/04/17 12/04/17 12/04/17 Range/Units 07:08 07:08 11:39 Hgb 10.5 L (11.4-16.0) gm/dL MCH 23.4 L (25.0-35.0) pg MCHC 28.4 L (31.0-37.0) g/dL RDW 15.9 H (11.5-15.5) % Glucose 101 H (74-99) mg/dL POC Glucose (mg/dL) 161 H (75-99) mg/dL AST 66 H (14-36) U/L ALT 113 H (9-52) U/L Alkaline Phosphatase 153 H (38-126) U/L Total Protein 6.0 L (6.3-8.2) g/dL Microbiology - Last 24 Hours (Table) 12/03/17 10:30 Urine Culture - Preliminary Urine,Clean Catch Assessment and Plan Plan: Assessment: 1. Right knee pain 2. Status post fall from standing 3. History of right total knee arthroplasty 11/11/2017 Plan: We will order 1 dose IV Solu-Medrol, and possibly initiate a oral tapered steroid dose. Patient admits to having herniated disc in her lumbar spine, she' s never had orthopedic surgery done on her spine. During the fall she may have irritated this area which could be causing her symptoms. Continue daily physical therapy Pain control GI and DVT prophylaxis per medical recommendations Plan for discharge back to subacute rehab when stable Time with Patient: Less than 30
--- NOTE | 2017-12-04 13:26 | P.PN ---
Subjective Progress Note Date: 12/04/17 This is a 62-year-old female with a known past medical history of recent right total knee arthroplasty on November [address] Herring. Also has a history of diabetes, COPD, hyperlipidemia, osteoporosis and arthritis, obstructive sleep apnea and hypothyroidism. Patient had been discharged from the hospital after her right total knee arthroplasty and had been at rehab. She was discharged a few days ago from rehab for her knee. She had been ambulating fine. However, on Saturday patient got up in the morning to to use the bathroom. She was able to use the restroom came out and her legs gave out. She landed on her knees on hard tile. Family member was able to help get her up. She was able to work with physical therapy later that day. And then she fell again Saturday evening landing on both knees. This time she was getting up in the middle the night to get to the bathroom and her legs gave out before she could get to the restroom. Patient reports no loss of consciousness no dizziness. No chest pain or shortness of breath. No heart palpitations. She denies any bowel movement changes or urinary symptoms. She reports feeling fine in that her legs are just giving out. She is in extreme pain in that right knee. X-ray was completed showing no evidence of fracture. 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 Right shoulder x-ray also completed showing possible bone islands in the glenoid. No fracture seen. Orthopedics have been consulted. Venous Doppler negative for DVT. She has been started on Bactrim for possible UTI in the emergency room. Urine cultures pending. Lactic acid elevated at 2.7 down to 2 after IV fluids. Metformin has been discontinued. Troponins are negative. EKG showing a normal sinus rhythm. Chest x-rays negative. Patient is currently on IV morphine as needed for pain control as well as [place]. Patient currently denies any urinary symptoms. There is no drainage or evidence of cellulitis at the right knee. The patient does have decreased mobility in that knee and decrease mobility in extending her right foot. On 12/04/2017 patient is alert and oriented 3 she is sitting up in a chair swelling and pain in the right knee has improved patient has more range of motion in her right knee and her right foot and ankle she is still having significant amount of pain there is some elevation in liver enzymes which were normal yesterday Objective - Vital Signs Vital signs: Vital Signs Temp 98.5 F 12/04/17 07:00 Pulse 87 12/04/17 07:00 Resp 16 12/04/17 07:00 BP 149/85 12/04/17 07:00 Pulse Ox 97 12/04/17 07:00 Intake & Output 12/03/17 12/04/17 12/04/17 18:59 06:59 18:59 Intake Total 680 200 Balance 680 200 Intake: Oral 680 200 Other: Voiding Method Toilet # Voids 1 - Exam Head normocephalic and atraumatic Neck supple no JVD no goiter Lungs clear to auscultation bilaterally no wheezing or crackles Heart regular rate and rhythm S1-S2, no rub or gallop Abdomen is soft nontender nondistended positive bowel sounds no hepatosplenomegaly Extremities right knee some swelling noted. Incision site clean dry and intact. Tenderness with palpation of the right knee. Decreased mobility in the right knee. +2 dorsalis pedis pulse. Patient has difficulty extending the right foot. Neuro alert and orientated to 3 - Labs CBC & Chem 7: 12/04/17 07:08 12/04/17 07:08 Labs: Abnormal Lab Results - Last 24 Hours (Table) 12/03/17 12/03/17 12/04/17 Range/Units 17:12 20:12 07:01 Hgb (11.4-16.0) gm/dL MCH (25.0-35.0) pg MCHC (31.0-37.0) g/dL RDW (11.5-15.5) % Glucose (74-99) mg/dL POC Glucose (mg/dL) 113 H 140 H 121 H (75-99) mg/dL AST (14-36) U/L ALT (9-52) U/L Alkaline Phosphatase (38-126) U/L Total Protein (6.3-8.2) g/dL 12/04/17 12/04/17 12/04/17 Range/Units 07:08 07:08 11:39 Hgb 10.5 L (11.4-16.0) gm/dL MCH 23.4 L (25.0-35.0) pg MCHC 28.4 L (31.0-37.0) g/dL RDW 15.9 H (11.5-15.5) % Glucose 101 H (74-99) mg/dL POC Glucose (mg/dL) 161 H (75-99) mg/dL AST 66 H (14-36) U/L ALT 113 H (9-52) U/L Alkaline Phosphatase 153 H (38-126) U/L Total Protein 6.0 L (6.3-8.2) g/dL Microbiology - Last 24 Hours (Table) 12/03/17 10:30 Urine Culture - Preliminary Urine,Clean Catch Assessment and Plan Plan: 1. Intractable right knee pain with fall. Recent right total knee arthroplasty on November 11. Orthopedics have been consulted. Venous Doppler negative for DVT. Resume [place] for pain control. Also adding IV morphine. X- ray showed no evidence of fracture of the knee 2. UTI started on Bactrim in the emergency room. Check urine culture. 3. Elevated lactic acid present on admission improving with IV fluids. Possibly related to UTI. Metformin discontinued 4. Diabetes mellitus type 2: Metformin on hold add sliding scale coverage 5. History of COPD stable no evidence of exacerbation 6. Hyperlipidemia maintained on Lipitor 40 mg daily Will discontinued due to elevated liver enzymes 7. elevated liver enzymes at this time will discontinue Lipitor and discontinue Tylenol will recheck labs in a.m. GI prophylaxis Pepcid and DVT prophylaxis subcu heparin
[2017-12-04] MEDS ORDERED: MORPHINE ORAL SOLN 10 MG/5 ML CUP PO PRN (14:58)
[2017-12-04] MEDS: QUEtiapine 50 MG TAB PO SCH ×3 (17:08→21:19)
[2017-12-04 17:13] LABS: Glucose,Whole Blood 116 mg/dL (75-99)
[2017-12-04] MEDS: DONEPEZIL 10 MG TAB PO SCH (21:19)
[2017-12-04] MEDS: cloNIDine HCL 0.1 MG TAB PO SCH (21:19)
[2017-12-04] MEDS: PRAMIPEXOLE 0.5 MG TAB PO SCH (21:19)
[2017-12-04] MEDS: lamoTRIgine 25 MG TAB PO SCH (21:19)
[2017-12-04] MEDS: LORATADINE 10 MG TAB PO SCH (21:20)
[2017-12-04 21:26] LABS: Glucose,Whole Blood 258 mg/dL (75-99)
[2017-12-05] MEDS: SODIUM CHLORIDE 0.9% 1,000 ML IV SCH ×2 (02:48→07:45)
[2017-12-05] MEDS: LEVOTHYROXINE 75 MCG TAB PO SCH (06:08)
[2017-12-05] MEDS: HYDROcodone/APAP 5-325MG 1 EACH TAB PO PRN ×5 (06:08→23:08)
[2017-12-05 07:11] LABS: Glucose,Whole Blood 132 mg/dL (75-99)
[2017-12-05] MEDS: cefTRIAXone IN SWFI 1,000 MG/10 ML SYRINGE IVP SCH (07:41)
[2017-12-05] MEDS: HEPARIN SODIUM,PORCINE 5,000 UNIT/ML 1 ML VIAL SQ SCH ×3 (07:41→20:08)
[2017-12-05] MEDS: FERROUS SULFATE 325 MG TAB PO SCH (07:42)
[2017-12-05] MEDS: SUCRALFATE 1 GM TAB PO SCH ×2 (07:42→20:08)
[2017-12-05] MEDS: DULoxetine HCL 60 MG CAPSULE.DR PO SCH (07:43)
[2017-12-05] MEDS: GABAPENTIN 400 MG CAP PO SCH ×4 (07:44→20:08)
[2017-12-05] MEDS: PANTOPRAZOLE 40 MG TABLET PO SCH (07:44)
[2017-12-05] MEDS: CYCLOBENZAPRINE 10 MG TAB PO SCH ×2 (07:44→20:09)
[2017-12-05] MEDS: INSULIN ASPART 100 UNIT/ML 1 ML 10 ML VIAL SQ SCH ×4 (07:57→21:34)
[2017-12-05 08:01] LABS: Basophils % (A) 0 %; Eosinophils % (A) 0 %; HCT 34.8 % (34.0-46.0); HGB 10.8 gm/dL (11.4-16.0); Hypochromasia Moderate; Lymphocytes # (A) 1.3 k/uL (1.0-4.8); Lymphocytes % (A) 20 %; MCH 24.2 pg (25.0-35.0); MCHC 30.9 g/dL (31.0-37.0); MCV 78.3 fL (80.0-100.0); Mean Platelet Volume 6.3; Microcytosis Slight; Monocytes # (A) 0.5 k/uL (0-1.0); Monocytes % (A) 7 %; Neutrophils # (A) 4.6 k/uL (1.3-7.7); Neutrophils % (A) 70 %; Platelet Count 307 k/uL (150-450); RBC 4.45 m/uL (3.80-5.40); RDW 15.6 % (11.5-15.5); WBC 6.7 k/uL (3.8-10.6)
[2017-12-05 08:28] LABS: ALT 70 U/L (9-52); AST 22 U/L (14-36); Albumin 3.5 g/dL (3.5-5.0); Alkaline Phosphatase 133 U/L (38-126); Anion Gap 9 mmol/L; Blood Urea Nitrogen 14 mg/dL (7-17); Calcium 9.6 mg/dL (8.4-10.2); Carbon Dioxide 29 mmol/L (22-30); Chloride 104 mmol/L (98-107); Glucose 119 mg/dL (74-99); Potassium 4.2 mmol/L (3.5-5.1); Sodium 142 mmol/L (137-145); Total Bilirubin 0.2 mg/dL (0.2-1.3); Total Protein 6.1 g/dL (6.3-8.2)
--- NOTE | 2017-12-05 10:10 | P.PN ---
Subjective Progress Note Date: 12/05/17 This is a 62-year-old female with a known past medical history of recent right total knee arthroplasty on November [address] Herring. Also has a history of diabetes, COPD, hyperlipidemia, osteoporosis and arthritis, obstructive sleep apnea and hypothyroidism. Patient had been discharged from the hospital after her right total knee arthroplasty and had been at rehab. She was discharged a few days ago from rehab for her knee. She had been ambulating fine. However, on Saturday patient got up in the morning to to use the bathroom. She was able to use the restroom came out and her legs gave out. She landed on her knees on hard tile. Family member was able to help get her up. She was able to work with physical therapy later that day. And then she fell again Saturday evening landing on both knees. This time she was getting up in the middle the night to get to the bathroom and her legs gave out before she could get to the restroom. Patient reports no loss of consciousness no dizziness. No chest pain or shortness of breath. No heart palpitations. She denies any bowel movement changes or urinary symptoms. She reports feeling fine in that her legs are just giving out. She is in extreme pain in that right knee. X-ray was completed showing no evidence of fracture. 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 Right shoulder x-ray also completed showing possible bone islands in the glenoid. No fracture seen. Orthopedics have been consulted. Venous Doppler negative for DVT. She has been started on Bactrim for possible UTI in the emergency room. Urine cultures pending. Lactic acid elevated at 2.7 down to 2 after IV fluids. Metformin has been discontinued. Troponins are negative. EKG showing a normal sinus rhythm. Chest x-rays negative. Patient is currently on IV morphine as needed for pain control as well as [place]. Patient currently denies any urinary symptoms. There is no drainage or evidence of cellulitis at the right knee. The patient does have decreased mobility in that knee and decrease mobility in extending her right foot. 12/05/2017 patient sitting up in bedside chair. She is able to flex and extend that right foot. Reports that she has some improvement in her mobility in the right knee. She did receive a dose of IV Solu-Medrol yesterday. Orthopedics are following closely. She has been up to ambulate to the bathroom. She is requiring assistance and the use of walker. She is having some improvement in her pain. Denies back pain. Does report having bowel movement. Denies any prior with urination. Denies any chest pain or shortness Objective - Vital Signs Vital signs: Vital Signs Temp 97.3 F L 12/05/17 07:29 Pulse 88 12/05/17 07:29 Resp 16 12/05/17 08:50 BP 140/68 12/05/17 07:29 Pulse Ox 97 12/05/17 07:29 Intake & Output 12/04/17 12/05/17 12/05/17 18:59 06:59 18:59 Intake Total 1600 1167 240 Output Total 750 1120 Balance 850 47 240 Weight 117.5 kg Intake: Intake, IV Titration 627 Amount Sodium Chloride 0.9% 1, 627 000 ml @ 125 mls/hr IV . Q8H LISANDRA Rx#:[id number] Oral 1600 540 240 Output: Urine 750 1120 Other: Voiding Method Bedside Commode Bedside Commode # Voids 3 1 - Exam Head normocephalic Neck supple Lungs clear to auscultation bilaterally no wheezing or crackles Heart regular rate and rhythm S1-S2, no rub or gallop Abdomen is soft nontender nondistended positive bowel sounds no hepatosplenomegaly Extremities right knee incision site clean dry and intact. Stomach some limited mobility in the right knee. Right foot she is able to extend and flex. Neuro alert and orientated to 3 - Labs CBC & Chem 7: 12/05/17 07:32 12/05/17 07:32 Labs: Abnormal Lab Results - Last 24 Hours (Table) 12/04/17 12/04/17 12/04/17 Range/Units 11:39 17:05 21:26 Hgb (11.4-16.0) gm/dL MCV (80.0-100.0) fL MCH (25.0-35.0) pg MCHC (31.0-37.0) g/dL RDW (11.5-15.5) % Glucose (74-99) mg/dL POC Glucose (mg/dL) 161 H 116 H 258 H (75-99) mg/dL ALT (9-52) U/L Alkaline Phosphatase (38-126) U/L Total Protein (6.3-8.2) g/dL 12/05/17 12/05/17 12/05/17 Range/Units 07:06 07:32 07:32 Hgb 10.8 L (11.4-16.0) gm/dL MCV 78.3 L (80.0-100.0) fL MCH 24.2 L (25.0-35.0) pg MCHC 30.9 L (31.0-37.0) g/dL RDW 15.6 H (11.5-15.5) % Glucose 119 H (74-99) mg/dL POC Glucose (mg/dL) 132 H (75-99) mg/dL ALT 70 H (9-52) U/L Alkaline Phosphatase 133 H (38-126) U/L Total Protein 6.1 L (6.3-8.2) g/dL Microbiology - Last 24 Hours (Table) 12/03/17 10:30 Urine Culture - Final Urine,Clean Catch Assessment and Plan Assessment: 1. Intractable right knee pain with fall. Recent right total knee arthroplasty on November 11. Venous Doppler negative for DVT. X-ray showed no evidence of fracture of the knee 2. UTI continue Rocephin. Urine culture contaminant. Continue Rocephin for one more day 3. Elevated lactic acid present on admission improving with IV fluids. Possibly related to UTI. Metformin discontinued 4. Diabetes mellitus type 2: Metformin on hold add sliding scale coverage 5. History of COPD stable no evidence of exacerbation 6. Hyperlipidemia 7. Elevated liver enzymes: Showing improvement. Lipitor and Tylenol discontinued GI prophylaxis Pepcid and DVT prophylaxis subcu heparin Patient will be discharged to [facility], possibly tomorrow if pain continues to improve I performed an examination of the patient and discussed their management with the physician Intake Specialist. I have reviewed the Physician Intake Specialist's notes and agree with the documented findings and plan of care
[2017-12-05 11:21] LABS: Glucose,Whole Blood 167 mg/dL (75-99)
[2017-12-05] MEDS ORDERED: methylPREDNISolone SOD SUCCI 40 MG/ML 1 ML VIAL IV STA (12:41)
--- NOTE | 2017-12-05 12:43 | P.PN ---
Subjective Progress Note Date: 12/05/17 Principal diagnosis: Right knee pain, history of recent right total knee arthroplasty Patient evaluated today at bedside, she's had significant improvement with regards to motion or knee. She can move the leg straight of the bed with minimal difficulty. She can flex the knee to about 70. Her pain is also improved on exam. She denies any headaches, lightheadedness, chest pain or shortness of breath. Objective - Vital Signs Vital signs: Vital Signs Temp 97.3 F L 12/05/17 07:29 Pulse 88 12/05/17 07:29 Resp 16 12/05/17 08:50 BP 140/68 12/05/17 07:29 Pulse Ox 97 12/05/17 07:29 Intake & Output 12/04/17 12/05/17 12/05/17 18:59 06:59 18:59 Intake Total 1600 1167 240 Output Total 750 1120 Balance 850 47 240 Weight 117.5 kg Intake: Intake, IV Titration 627 Amount Sodium Chloride 0.9% 1, 627 000 ml @ 125 mls/hr IV . Q8H LISANDRA Rx#:[id number] Oral 1600 540 240 Output: Urine 750 1120 Other: Voiding Method Bedside Commode Bedside Commode # Voids 3 1 - Exam Right lower extremity: Incision over the anterior aspect knee is well-healed No significant areas of erythema or ecchymosis No palpable defect present along the medial aspect of the knee or in the quadriceps tendon insertion region Patient is able to flex the knee to about 70, she can extend the knee fully and lift the leg off the bed. Calf is soft, no tenderness with palpation Plantar flexion, dorsiflexion, EHL, FHL are intact. Dorsal pedis pulses 2+, sensory exam to light touch throughout the extremities intact. - Labs CBC & Chem 7: 12/05/17 07:32 12/05/17 07:32 Labs: Abnormal Lab Results - Last 24 Hours (Table) 12/04/17 12/04/17 12/05/17 Range/Units 17:05 21:26 07:06 Hgb (11.4-16.0) gm/dL MCV (80.0-100.0) fL MCH (25.0-35.0) pg MCHC (31.0-37.0) g/dL RDW (11.5-15.5) % Glucose (74-99) mg/dL POC Glucose (mg/dL) 116 H 258 H 132 H (75-99) mg/dL ALT (9-52) U/L Alkaline Phosphatase (38-126) U/L Total Protein (6.3-8.2) g/dL 12/05/17 12/05/17 12/05/17 Range/Units 07:32 07:32 11:19 Hgb 10.8 L (11.4-16.0) gm/dL MCV 78.3 L (80.0-100.0) fL MCH 24.2 L (25.0-35.0) pg MCHC 30.9 L (31.0-37.0) g/dL RDW 15.6 H (11.5-15.5) % Glucose 119 H (74-99) mg/dL POC Glucose (mg/dL) 167 H (75-99) mg/dL ALT 70 H (9-52) U/L Alkaline Phosphatase 133 H (38-126) U/L Total Protein 6.1 L (6.3-8.2) g/dL Microbiology - Last 24 Hours (Table) 12/03/17 10:30 Urine Culture - Final Urine,Clean Catch Assessment and Plan Plan: Assessment: 1. Right knee pain 2. Status post fall from standing 3. History of right total knee arthroplasty 11/11/2017 Plan: Order one additional Solu-Medrol dose, 30 mg IV. Plan for discharge on an oral steroid taper Continue daily physical therapy Pain control GI and DVT prophylaxis, we'll discharge likely an aspirin 325 mg twice a day for 10 days Plan for discharge back to rehab tomorrow Time with Patient: Less than 30
[2017-12-05] MEDS: QUEtiapine 50 MG TAB PO SCH ×3 (13:16→20:08)
[2017-12-05 17:00] LABS: Glucose,Whole Blood 169 mg/dL (75-99)
[2017-12-05 20:05] LABS: Glucose,Whole Blood 249 mg/dL (75-99)
[2017-12-05] MEDS: PRAMIPEXOLE 0.5 MG TAB PO SCH (20:08)
[2017-12-05] MEDS: DONEPEZIL 10 MG TAB PO SCH (20:08)
[2017-12-05] MEDS: LORATADINE 10 MG TAB PO SCH (20:08)
[2017-12-05] MEDS: lamoTRIgine 25 MG TAB PO SCH (20:09)
[2017-12-05] MEDS: cloNIDine HCL 0.1 MG TAB PO SCH (20:09)
[2017-12-06] MEDS: HYDROcodone/APAP 5-325MG 1 EACH TAB PO PRN ×3 (03:25→11:32)
[2017-12-06 04:14] VITALS: RESP 17
[2017-12-06 07:06] VITALS: BP 152/69; PULSE 82; TEMP 98.2
[2017-12-06 07:09] LABS: Glucose,Whole Blood 99 mg/dL (75-99)
[2017-12-06] MEDS: INSULIN ASPART 100 UNIT/ML 1 ML 10 ML VIAL SQ SCH (07:15)
[2017-12-06] MEDS: HEPARIN SODIUM,PORCINE 5,000 UNIT/ML 1 ML VIAL SQ SCH (07:15)
[2017-12-06] MEDS: SUCRALFATE 1 GM TAB PO SCH (07:15)
[2017-12-06] MEDS: CYCLOBENZAPRINE 10 MG TAB PO SCH (07:16)
[2017-12-06] MEDS: PANTOPRAZOLE 40 MG TABLET PO SCH (07:17)
[2017-12-06] MEDS: LEVOTHYROXINE 75 MCG TAB PO SCH (07:17)
[2017-12-06] MEDS: DULoxetine HCL 60 MG CAPSULE.DR PO SCH (07:17)
[2017-12-06] MEDS: FERROUS SULFATE 325 MG TAB PO SCH (07:18)
[2017-12-06] MEDS: GABAPENTIN 400 MG CAP PO SCH (07:18)
[2017-12-06 07:45] LABS: Basophils % (A) 1 %; Eosinophils # (A) 0.1 k/uL (0-0.7); Eosinophils % (A) 1 %; HCT 38.2 % (34.0-46.0); HGB 11.5 gm/dL (11.4-16.0); Hypochromasia Marked; Lymphocytes # (A) 2.2 k/uL (1.0-4.8); Lymphocytes % (A) 29 %; MCH 24.2 pg (25.0-35.0); MCHC 30.1 g/dL (31.0-37.0); MCV 80.5 fL (80.0-100.0); Mean Platelet Volume 6.9; Monocytes # (A) 0.5 k/uL (0-1.0); Monocytes % (A) 7 %; Neutrophils # (A) 4.6 k/uL (1.3-7.7); Neutrophils % (A) 59 %; Platelet Count 336 k/uL (150-450); RBC 4.74 m/uL (3.80-5.40); RDW 15.6 % (11.5-15.5); WBC 7.8 k/uL (3.8-10.6)
[2017-12-06 07:57] LABS: ALT 64 U/L (9-52); AST 21 U/L (14-36); Alkaline Phosphatase 136 U/L (38-126); Anion Gap 14 mmol/L; Blood Urea Nitrogen 15 mg/dL (7-17); Calcium 9.8 mg/dL (8.4-10.2); Carbon Dioxide 25 mmol/L (22-30); Chloride 103 mmol/L (98-107); Glucose 104 mg/dL (74-99); Potassium 4.2 mmol/L (3.5-5.1); Sodium 142 mmol/L (137-145); Total Bilirubin 0.3 mg/dL (0.2-1.3); Total Protein 6.8 g/dL (6.3-8.2)
[2017-12-06] MEDS: cefTRIAXone IN SWFI 1,000 MG/10 ML SYRINGE IVP SCH (09:19)
--- NOTE | 2017-12-06 09:22 | P.PN ---
Subjective Progress Note Date: 12/06/17 Principal diagnosis: Right knee pain, history of recent right total knee arthroplasty Patient evaluated today at bedside, she continues to note improvement in range of motion. She denies any headaches, lightheadedness, chest pain or shortness of breath. Objective - Vital Signs Vital signs: Vital Signs Temp 98.2 F 12/06/17 07:00 Pulse 82 12/06/17 07:00 Resp 17 12/06/17 07:00 BP 152/69 12/06/17 07:00 Pulse Ox 95 12/06/17 07:00 Intake & Output 12/05/17 12/06/17 12/06/17 18:59 06:59 18:59 Intake Total 840 1560 Output Total 980 Balance 840 580 Intake: Oral 840 1560 Output: Urine 980 Other: Voiding Method Bedside Commode # Voids 1 3 1 - Exam Right lower extremity: Incision over the anterior aspect knee is well-healed No significant areas of erythema or ecchymosis No palpable defect present along the medial aspect of the knee or in the quadriceps tendon insertion region Patient is able to flex the knee to about 90, she can extend the knee fully and lift the leg off the bed. Calf is soft, no tenderness with palpation Plantar flexion, dorsiflexion, EHL, FHL are intact. Dorsal pedis pulses 2+, sensory exam to light touch throughout the extremities intact. - Labs CBC & Chem 7: 12/06/17 07:17 12/06/17 07:17 Labs: Abnormal Lab Results - Last 24 Hours (Table) 12/05/17 12/05/17 12/05/17 Range/Units 11:19 16:54 20:02 MCH (25.0-35.0) pg MCHC (31.0-37.0) g/dL RDW (11.5-15.5) % Glucose (74-99) mg/dL POC Glucose (mg/dL) 167 H 169 H 249 H (75-99) mg/dL ALT (9-52) U/L Alkaline Phosphatase (38-126) U/L 12/06/17 12/06/17 Range/Units 07:17 07:17 MCH 24.2 L (25.0-35.0) pg MCHC 30.1 L (31.0-37.0) g/dL RDW 15.6 H (11.5-15.5) % Glucose 104 H (74-99) mg/dL POC Glucose (mg/dL) (75-99) mg/dL ALT 64 H (9-52) U/L Alkaline Phosphatase 136 H (38-126) U/L Assessment and Plan Plan: Assessment: 1. Right knee pain 2. Status post fall from standing 3. History of right total knee arthroplasty 11/11/2017 Plan: Patient will be discharged on a Medrol Dosepak Continue daily physical therapy Pain control GI and DVT prophylaxis, we'll discharge likely an aspirin 325 mg twice a day for 10 days Plan for discharge back to rehab tomorrow Scheduled follow for Dr. Herring in a few weeks Time with Patient: Less than 30
--- NOTE | 2017-12-06 10:22 | P.DS ---
Providers Date of admission: 12/03/17 03:05 Expected date of discharge: 12/06/17 Attending physician: Shwetha Yusuf Consults: 12/03/17 09:17 Consult Physician Routine Consulting Provider: Jairon Herring Consult Reason/Comments: right knee pain with recent surgery Do you want consulting provider notified?: Yes Primary care physician: Luisa Jennings Hospital Course: Discharge diagnosis 1. Intractable right knee pain with fall. Recent right total knee arthroplasty on November 11. Venous Doppler negative for DVT. X-ray showed no evidence of fracture of the knee. Patient seen by orthopedics. They've treated with IV Solu-Medrol and has switched her over to a Medrol Dosepak. Continue with [place] for pain control. No intervention required 2. UTI: Urine culture contaminant. Continue Ceftin for 3 more days 3. Elevated lactic acid present on admission improving with IV fluids. Possibly related to UTI. 4. Diabetes mellitus type 2: Continue metformin 5. History of COPD stable no evidence of exacerbation 6. Hyperlipidemia 7. Elevated liver enzymes: Likely medication induced. Showing improvement. Lipitor and Tylenol discontinued . Recommend repeating LFTs in 1 week Hospital course This is a 62-year-old female with a known past medical history of recent right total knee arthroplasty on November [address] Herring. Also has a history of diabetes, COPD, hyperlipidemia, osteoporosis and arthritis, obstructive sleep apnea and hypothyroidism. Patient had been discharged from the hospital after her right total knee arthroplasty and had been at rehab. She was discharged a few days ago from rehab for her knee. She had been ambulating fine. However, on Saturday patient got up in the morning to to use the bathroom. She was able to use the restroom came out and her legs gave out. She landed on her knees on hard tile. Family member was able to help get her up. She was able to work with physical therapy later that day. And then she fell again Saturday evening landing on both knees. This time she was getting up in the middle the night to get to the bathroom and her legs gave out before she could get to the restroom. Patient reports no loss of consciousness no dizziness. No chest pain or shortness of breath. No heart palpitations. She denies any bowel movement changes or urinary symptoms. She reports feeling fine in that her legs are just giving out. She is in extreme pain in that right knee. X-ray was completed showing no evidence of fracture. 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 Right shoulder x-ray also completed showing possible bone islands in the glenoid. No fracture seen. Orthopedics have been consulted. Venous Doppler negative for DVT. She has been started on Bactrim for possible UTI in the emergency room. Urine cultures pending. Lactic acid elevated at 2.7 down to 2 after IV fluids. Metformin has been discontinued. Troponins are negative. EKG showing a normal sinus rhythm. Chest x-rays negative. Patient is currently on IV morphine as needed for pain control as well as [place]. Patient currently denies any urinary symptoms. There is no drainage or evidence of cellulitis at the right knee. The patient does have decreased mobility in that knee and decrease mobility in extending her right foot. Patient was seen by orthopedics. Venous Doppler was negative for blood clot. X -rays show no evidence of fracture on the right knee. Orthopedics place patient on IV Solu-Medrol. She's had improvement in flexion and extension in that right foot as well as she is able to lift the leg and bend the knee more. Orthopedics have cleared her for discharge and a recommending a Medrol Dosepak at time of discharge. Patient will be discharged back to [facility] for rehabilitation. She also continue treatment for a UTI with 3 more days of Ceftin. Metformin can be resumed. It was discontinued on admission due to her elevated lactic acid level which improved with IV fluids. Patient is showing improvement. She is medical stable for discharge. She's been cleared for discharge by orthopedics. Dr. Colbert will follow patient at [facility] I performed an examination of the patient and discussed their management with the physician Fashion Director. I have reviewed the Physician Fashion Director's notes and agree with the documented findings and plan of care Patient Condition at Discharge: Stable Plan - Discharge Summary Discharge Rx Participant: No New Discharge Prescriptions: New Hydrocodone/Acetaminophen [[place] 10-325] 1 - 2 each PO Q4H PRN #60 tab PRN Reason: Pain Aspirin 325 mg PO BID #20 tab methylPREDNISolone Dose Pack [Medrol Dose Pack] 4 mg PO DIRECTED #21 package Cefuroxime [Ceftin] 250 mg PO BID #6 tablet Continue Donepezil HCl [Aricept] 10 mg PO HS Sucralfate [Carafate] 1 gm PO BID Loratadine [Claritin] 10 mg PO HS Gabapentin [Neurontin] 400 mg PO QID DULoxetine HCL [Cymbalta] 120 mg PO QAM QUEtiapine XR [SEROquel XR] 150 mg PO W/LUNCH Pantoprazole Sodium 40 mg PO QAM metFORMIN HCL [Glucophage] 850 mg PO TID Ibandronate Sodium [Boniva] 150 mg PO Q30D Nitroglycerin Sl Tabs [Nitrostat] 0.4 mg SUBLINGUAL Q5M PRN PRN Reason: Chest Pain Albuterol Inhaler [Ventolin Hfa Inhaler] 2 puff INHALATION RT-Q6H PRN PRN Reason: Shortness Of Breath Albuterol Nebulized [Ventolin Nebulized] 2.5 mg INHALATION RT-TID PRN PRN Reason: Shortness Of Breath Levothyroxine Sodium [Synthroid] 75 mcg PO DAILY QUEtiapine XR [SEROquel XR] 150 mg PO HS QUEtiapine XR [SEROquel XR] 150 mg PO W/SUPPER SUMAtriptan SUCCINATE [Imitrex] 100 mg PO DAILY PRN PRN Reason: Migraine Headache lamoTRIgine [LaMICtal] 25 mg PO HS Bismuth Subsalicylate [Pepto-Bismol] 262 mg PO BID PRN PRN Reason: Indigestion Dextroamphetamine/Amphetamine [Adderall] 30 mg PO DAILY #30 tablet Pramipexole Di-HCl [Mirapex] 0.5 mg PO HS Ergocalciferol [Vitamin D2 (DRISDOL)] 50,000 unit PO BLEDSOE Ferrous Sulfate [Iron (65 MG Elemental)] 325 mg PO DAILY Ibuprofen [Motrin] 800 mg PO TID PRN PRN Reason: Pain cloNIDine HCL [Catapres] 0.1 mg PO HS Cyclobenzaprine [Flexeril] 10 mg PO BID Discontinued Atorvastatin [Lipitor] 40 mg PO HS Discharge Medication List Albuterol Inhaler [Ventolin Hfa Inhaler] 2 puff INHALATION RT-Q6H PRN 10/17/15 [ History] DULoxetine HCL [Cymbalta] 120 mg PO QAM 10/17/15 [History] Donepezil HCl [Aricept] 10 mg PO HS 10/17/15 [History] Gabapentin [Neurontin] 400 mg PO QID 10/17/15 [History] Ibandronate Sodium [Boniva] 150 mg PO Q30D 10/17/15 [History] Loratadine [Claritin] 10 mg PO HS 10/17/15 [History] Nitroglycerin Sl Tabs [Nitrostat] 0.4 mg SUBLINGUAL Q5M PRN 10/17/15 [History] Pantoprazole Sodium 40 mg PO QAM 10/17/15 [History] QUEtiapine XR [SEROquel XR] 150 mg PO W/LUNCH 10/17/15 [History] Sucralfate [Carafate] 1 gm PO BID 10/17/15 [History] metFORMIN HCL [Glucophage] 850 mg PO TID 10/17/15 [History] Albuterol Nebulized [Ventolin Nebulized] 2.5 mg INHALATION RT-TID PRN 10/31/15 [ History] Levothyroxine Sodium [Synthroid] 75 mcg PO DAILY 01/07/17 [History] QUEtiapine XR [SEROquel XR] 150 mg PO HS 01/07/17 [History] QUEtiapine XR [SEROquel XR] 150 mg PO W/SUPPER 01/07/17 [History] Bismuth Subsalicylate [Pepto-Bismol] 262 mg PO BID PRN 10/31/17 [History] SUMAtriptan SUCCINATE [Imitrex] 100 mg PO DAILY PRN 10/31/17 [History] lamoTRIgine [LaMICtal] 25 mg PO HS 10/31/17 [History] Dextroamphetamine/Amphetamine [Adderall] 30 mg PO DAILY #30 tablet 11/14/17 [Rx] Cyclobenzaprine [Flexeril] 10 mg PO BID 12/02/17 [History] Ergocalciferol [Vitamin D2 (DRISDOL)] 50,000 unit PO BLEDSOE 12/02/17 [History] Ferrous Sulfate [Iron (65 MG Elemental)] 325 mg PO DAILY 12/02/17 [History] Ibuprofen [Motrin] 800 mg PO TID PRN 12/02/17 [History] Pramipexole Di-HCl [Mirapex] 0.5 mg PO HS 12/02/17 [History] cloNIDine HCL [Catapres] 0.1 mg PO HS 12/02/17 [History] Aspirin 325 mg PO BID #20 tab 12/06/17 [Rx] Cefuroxime [Ceftin] 250 mg PO BID #6 tablet 12/06/17 [Rx] Hydrocodone/Acetaminophen [[place] 10-325] 1 - 2 each PO Q4H PRN #60 tab 12/06/17 [Rx] methylPREDNISolone Dose Pack [Medrol Dose Pack] 4 mg PO DIRECTED #21 package 12/06/17 [Rx] Follow up Appointment(s)/Referral(s): Jairon Herring DO [Doctor of Osteopathic Medicine] - 12/27/17 10:20 am Luisa Jennings DO [Primary Care Provider] - 1 Week Activity/Diet/Wound Care/Special Instructions: Orthopedic Discharge Instructions: 1. Daily physical therapy 2. Ice and elevate often 3. Aspirin 325mg bid for 10 days 4. Follow up at [facility] in 2 weeks Diet: diabetic, cardiac check LFTs in 1 week [facility] Dis[facility] Disposition: TRANSFER TO SNF/ECF
[2017-12-06 12:10] LABS: Glucose,Whole Blood 106 mg/dL (75-99)
[2017-12-08] MEDS ORDERED: ERGOCALCIFEROL 50,000 UNIT CAP PO SCH (09:00)
== END 2017-12-06 12:00 | DRG 556 ==
LOC: EC 22:27 → 3SUR 12-03 03:05 → OBSVTOIN 12-03 03:05
PROVIDERS: ADMIT Internal Medicine; ATTEND Internal Medicine
DX: M25.561 Pain in right knee (principal); E87.2 Acidosis; N39.0 Urinary tract infection, site not specified; E03.9 Hypothyroidism, unspecified; E11.9 Type 2 diabetes mellitus without complications; E78.5 Hyperlipidemia, unspecified; F32.9 Major depressive disorder, single episode, unspecified; F41.0 Panic disorder [episodic paroxysmal anxiety]; F60.3 Borderline personality disorder; G47.33 Obstructive sleep apnea (adult) (pediatric); J44.9 Chronic obstructive pulmonary disease, unspecified; M19.011 Primary osteoarthritis, right shoulder; M81.0 Age-related osteoporosis without current pathological fracture; W18.30XA Fall on same level, unspecified, initial encounter; Y92.009 Unspecified place in unspecified non-institutional (private) residence as the place of occurrence of the external cause; Z79.899 Other long term (current) drug therapy; Z87.891 Personal history of nicotine dependence; Z90.710 Acquired absence of both cervix and uterus; Z96.651 Presence of right artificial knee joint; Z86.14 Personal history of Methicillin resistant Staphylococcus aureus infection; G43.909 Migraine, unspecified, not intractable, without status migrainosus; Z79.84 Long term (current) use of oral hypoglycemic drugs; Z79.890 Hormone replacement therapy; Z88.5 Allergy status to narcotic agent; Z88.8 Allergy status to other drugs, medicaments and biological substances
CPT/HCPCS: 36415; 71045; 80053; 81001; 83036; 83605; 83735; 84484; 85025; 85610; 85730; 87086; 93005; 96361; 96375; 99285

== ENCOUNTER → 2018-11-26 | Outpatient (CLI) | payer MEDICARE, OTHER ==
--- NOTE | 2018-11-26 11:31 | XR ---
EXAMINATION TYPE: XR foot complete LT DATE OF EXAM: 11/26/2018 CLINICAL HISTORY: pain TECHNIQUE: Frontal, lateral and oblique images of the left foot are obtained. COMPARISON: None. FINDINGS: There is no acute fracture/dislocation evident. The joint spaces appear within normal velasquez its. The overlying soft tissue appears unremarkable. IMPRESSION: There is no acute fracture or dislocation. ICD 10 NO FRACTURE, INITIAL EVALUATION
== END | disposition home or self-care (01) ==
LOC: RADXRMAIN 11:04
PROVIDERS: ATTEND Podiatrist Foot Surgery
DX: M79.672 Pain in left foot (principal)

== ENCOUNTER → 2018-11-28 | Outpatient (CLI) | payer MEDICARE, OTHER ==
--- NOTE | 2018-11-28 12:27 | NM ---
EXAMINATION TYPE: NM thyroid image only DATE OF EXAM: 11/28/2018 COMPARISON: CT chest March 18, 2012 HISTORY: Thyroid nodule per order. TECHNIQUE: After the intravenous administration of 10.4 mCi Tc 99m Sodium Pertechnetate. FINDINGS: There is normal distribution of radiotracer throughout the thyroid gland. No suspicious hot or cold n odules identified. IMPRESSION: Normal thyroid scan .
== END | disposition home or self-care (01) ==
LOC: RADNMMAIN 11:00
PROVIDERS: ATTEND Family Medicine
DX: E04.1 Nontoxic single thyroid nodule (principal)
CPT/HCPCS: 78013; A9512

== ENCOUNTER → 2020-12-02 | Outpatient (CLI) | payer MEDICARE, OTHER ==
--- NOTE | 2020-12-02 22:27 | MR ---
EXAMINATION TYPE: MR shoulder LT wo con DATE OF EXAM: 12/02/2020 COMPARISON: None available. HISTORY: Left shoulder pain, decreased ROM x 6 mos, no trauma TECHNIQUE: Multiplanar, multisequence imaging of the left shoulder is performed without contrast. FINDINGS: Rotator Cuff: There is small moderate grade partial-thickness tear of the supraspinatus tendon anteri or fibers at the footprint. There is moderate tendinosis and moderate grade partial thickness tear of the subscapularis tendon cranial fibers. The infraspinatus and teres minor tendons are grossly intac t. Acromioclavicular Joint: Mild osteoarthritis. Glenohumeral Joint: Cortical irregularity of the anterior-inferior glenoid, suggestive of remote post traumatic changes. Otherwise mild osteoarthritis. Labrum: Mild degeneration of the glenoid labrum. Biceps Tendon: The long head of biceps is in normal location within bicipital groove. Bone marrow signal: No significant bone marrow abnormality, acute fracture or dislocation. Degenerati ve mild cystic changes within the humeral head Other: No additional significant abnormality is appreciated. IMPRESSION: Small moderate grade partial-thickness tear of the supraspinatus tendon anterior fibers at the footpr int. Moderate tendinosis and moderate grade partial thickness tear of the subscapularis tendon. Findings suggestive of remote posttraumatic changes of the anterior inferior glenoid. Recommend clini cruz correlation for prior dislocation.
== END | disposition home or self-care (01) ==
LOC: RADMRIMAIN 19:09
PROVIDERS: ATTEND Orthopaedic Surgery
DX: M75.112 Incomplete rotator cuff tear or rupture of left shoulder, not specified as traumatic (principal)

== ENCOUNTER → 2021-03-06 | Outpatient (CLI) | payer MEDICARE, OTHER ==
--- NOTE | 2021-03-07 03:31 | MR ---
EXAMINATION TYPE: MR brain wo con DATE OF EXAM: 03/06/2021 COMPARISON: None HISTORY: Benign essential tremor, migraine aura without headache. Multiplanar multiecho imaging of the brain was performed without contrast. Ventricles and sulci appear fairly normal. There is no mass effect or midline shift. There is no sign of intracranial hemorrhage. Diffusion images show no evidence of an acute infarct. There is mild inc reased signal adjacent to the ventricles on the T2 and FLAIR images. This measures up to 4 mm in thic kness. The corpus callosum appears intact. The brainstem is intact. Sella turcica appears normal. There is no evidence of orbital mass. Cerebell um is intact. IMPRESSION: White matter mild signal changes around the ventricles is nonspecific and could relate to demyelinati ng disease or microvascular ischemia. No evidence of cortical infarct. No posterior fossa abnormality .
== END | disposition home or self-care (01) ==
LOC: RADMRIMAIN 18:37
PROVIDERS: ATTEND Psychiatry & Neurology Neurology
DX: G25.0 Essential tremor (principal); G43.109 Migraine with aura, not intractable, without status migrainosus
CPT/HCPCS: 70551

== ENCOUNTER → 2021-03-06 | Outpatient (CLI) | payer MEDICARE, OTHER ==
--- NOTE | 2021-03-07 07:57 | XR ---
EXAMINATION TYPE: XR chest 2V DATE OF EXAM: 03/06/2021 COMPARISON: 12/02/2017 HISTORY: Cough, shortness of breath, history of COPD TECHNIQUE: Frontal and lateral views of the chest are obtained. FINDINGS: Low lung volumes. Heart size is mildly enlarged, stable. No pleural effusion, focal consol idation or pneumothorax. Degenerative changes of the thoracic spine are mild. IMPRESSION: 1. No acute pulmonary disease. Mild stable cardiomegaly.
== END | disposition home or self-care (01) ==
LOC: RADXRMAIN 19:40
PROVIDERS: ATTEND Physician Assistant Medical
DX: Z00.00 Encounter for general adult medical examination without abnormal findings (principal); I51.7 Cardiomegaly; Z88.5 Allergy status to narcotic agent; Z88.8 Allergy status to other drugs, medicaments and biological substances
CPT/HCPCS: 71046

== ENCOUNTER → 2021-07-06 | Outpatient (CLI) | payer MEDICARE, OTHER ==
--- NOTE | 2021-07-07 07:16 | XR ---
EXAMINATION TYPE: XR chest 2V DATE OF EXAM: 07/06/2021 COMPARISON: 03/06/2021 INDICATION: R06.02 TECHNIQUE: Frontal and lateral views of the chest are obtained. FINDINGS: The heart size is normal. The pulmonary vasculature is normal. The lungs are clear. IMPRESSION: 1. No acute pulmonary process.
== END | disposition home or self-care (01) ==
LOC: RADXRMAIN 16:05
PROVIDERS: ATTEND Physician Assistant
DX: R06.02 Shortness of breath (principal)
CPT/HCPCS: 71046